=== PATIENT | male | born 1940 | race Caucasian/White ===

== ENCOUNTER → 2017-11-18 09:33 | Outpatient (CLI) | payer MEDICARE, SELFPAY ==
--- NOTE | 2017-11-18 | DI.ECHO.S_ITS ---
[facility] +---------+ : : [address] : : : : [id number] : : : : Phone: [phone]+ Echocardiogram Report + + :Name: EMILIANO CASTRO Study Date: 11/18/2017 Height: 74 in : :[facility] Weight: 151 lb : : Gender: Male BSA: 1.9 m2 : :: 1940 Age: 77 yrs BP: 136/74 mmHg: :Reason For Study: Aortic valve stenosis : :Ordering Physician: Bravo : :Kael Galan Performed By: Delilah Nieves : + + Interpretation Summary 1) Severe concentric left ventricular thickness with small size and normal systolic function (EF 55-60%). 2) Normal right ventricular size and function. 3) There is critically severe aortic stenosis (mean gradient 114mmHg, valve area 0.38cm2). 4) There is mild to moderate aortic regurgitation. 5) There is a small loculated pericardial effusion. 6) Normal pulmonary artery pressures. 7) Compared to the Echo done 10/01/2016, critical aortic stenosis has become more severe. Procedure: A two-dimensional transthoracic echocardiogram with color flow and Doppler was performed. NOTE TO TECH-The parasternal views were obtained from subcostal due to suboptimal acoustic window from traditional view. The study quality was technically adequate. Comparison is made with the echocardiogram of 10/01/2016. The patient was in sinus bradycardia with heart rates between 48-62 bpm during the exam. Left Ventricle: The left ventricular cavity is small. Left ventricular wall thickness is severely increased. There is no thrombus. The ejection fraction is estimated to be 55-60%. Right Ventricle: The right ventricle is normal in size and function. Atria: The left atrium is severely dilated. The right atrium is mildly dilated. There is no Doppler evidence for an interatrial shunt. Mitral Valve: The mitral valve leaflets are mildly calcified. There is trace mitral regurgitation. Aortic Valve: The aortic valve is not well visualized. The aortic valve is heavily calcified. The peak aortic velocity is 6.3 m/sec. The peak aortic velocity on the previous exam was 6.6 m/sec. The calculated aortic valve area is 0.38 cm2. The aortic valve mean gradient is 114.3 mmHg. There is critically severe aortic stenosis. There is mild to moderate aortic regurgitation. Tricuspid Valve: The tricuspid valve is normal in structure and function. There is trace tricuspid regurgitation. The right ventricular systolic pressure is estimated at 25 mmHg assuming a right atrial pressure of 8 mm Hg. Pulmonic Valve: The pulmonic valve is normal in structure and function. There is a trace or physiologic amount of pulmonic regurgitation. Great Vessels: The aortic root is not well visualized but is probably normal size. The ascending aorta could not be visualized. The aortic arch could not be visualized. The IVC is of normal diameter and collapses less than 50% with a sniff. This suggests a right atrial pressure of 8 mm Hg. Pericardium/ Pleura There is a small loculated pericardial effusion. There is no pleural effusion. MMode/2D Measurements & Calculations LVIDd: 3.3 cm LVOT diam: 2.3 cm LVIDs: 1.9 cm FS: 42.2 % IVSd: 2.2 cm LVPWd: 1.9 cm LV qureshi. diameter/BSA (cm/m^2): 1.7 LV sys. diameter/BSA (cm/m^2): 0.98 LA A2 area: 25.5 cm2 RA long axis: 4.5 cm LA A4 area: 23.3 cm2 RA area: 19.1 cm2 LA length (vol): 5.0 cm RA vol: 68.9 ml LA vol: 101.3 ml RA : 35.7 ml/m2 LA vol index: 52.5 ml/m2 IVC diam: 1.9 cm RVD1 (basal): 3.4 cm RVD2 (mid): 2.6 cm TAPSE: 2.7 cm Doppler Measurements & Calculations Ao V2 max: 632.1 cm/sec LVOT Max Lex: 62.3 cm/sec Ao V2 mean: 513.3 cm/sec LV V1 max P.6 mmHg Ao max P.8 mmHg LV V1 VTI: 18.9 cm Ao mean P.3 mmHg PAWAN(I,D): 0.38 cm2 Ao V2 VTI: 204.9 cm PAWAN(V,D): 0.41 cm2 sev ratio: 0.09 PAWAN indexed to BSA (cm^2/m^2): 0.20 AI P1/2t: 573.0 msec AI dec slope: 248.0 cm/sec2 MV E max lex: 75.2 cm/sec TR max lex: 204.8 cm/sec MV A max lex: 95.2 cm/sec TR max P.8 mmHg MV E/A: 0.79 PA V2 max: 105.1 cm/sec Med Peak E' Lex: 3.9 cm/sec PA V2 mean: 65.7 cm/sec E/E' med: 19.3 PA mean P.2 mmHg Lat Peak E' Lex: 3.1 cm/sec PA Accel Time: 0.16 sec E/E' lat: 24.6 E/e' average: 22.0 MV dec time: 0.33 sec MV P1/2t: 96.4 msec MV P1/2t max lex: 75.3 cm/sec MVA(P1/2t): 2.3 cm2 Reading Physician:05:45 PM
== END ==
PROVIDERS: PCP Family Medicine Sports Medicine; Visit Provider Internal Medicine Cardiovascular Disease
DX: I35.0 Nonrheumatic aortic (valve) stenosis (principal)
CPT/HCPCS: 93306

== ENCOUNTER 2018-03-20 15:37 | Emergency (ER) | payer MEDICARE, SELFPAY ==
[2018-03-20 15:47] VITALS: BP 135/68; PULSE 78; RESP 18; TEMP 36.9; O2SAT 98
--- NOTE | 2018-03-20 16:20 | ED_ITS ---
HPI - Male Genitourinary <Nella James PA-C - Last Filed: 03/20/18 21:45> General Chief complaint: Urogenital-Male Stated complaint: BLOOD IN URINE Time Seen by Provider: 03/20/18 15:55 Source: patient Mode of arrival: ambulatory Limitations: no limitations History of Present Illness HPI Narrative: This 75-year-old female comes in today directed by his urologist due to hematuria. He has chronic dave that is changed monthly secondary to urinary retention from BPH. He states that when the most recent catheter was placed 3 weeks ago, it felt uncomfortable, like it was pushing on the bladder somewhat like an inch too far. He had some bleeding which resolved after a few days but has had some discomfort ever since. He states that he was treated for an infection which resolved. He states that yesterday, he was out doing some weed eating on rough ground and also riding his [employer] mower, and after that he noticed quite a bit of dark blood again. He states that this persisted overnight though seems to be clearing up a little bit now. He has a large left inguinal hernia that he is seeing surgery for next week. He states that this can get a little sore anywhere is a hernia belt , but no enlargement or worsening today. He states that he is still able to push it in if he lies down. He denies any urinary pain, fever, new flank or abdominal pain. He denies any chest pain, dyspnea, or other new complaints on systems review today. Related Data Home Medications Medication Instructions Recorded Confirmed No Known Home Medications 03/20/18 03/20/18 Previous Rx's Medication Instructions Recorded nitrofurantoin monohyd/m-cryst 100 mg PO BID 5 Days #10 cap 03/20/18 [Macrobid] Allergies Allergy/AdvReac Type Severity Reaction Status Date / Time omeprazole [OMEPRAZOLE] Allergy Severe nosebleeds Verified 03/20/18 15:51 Review of Systems <Nella James PA-C - Last Filed: 03/20/18 21:45> Review of Systems All systems reviewed & are unremarkable except as noted in HPI and below Exam <Nella James PA-C - Last Filed: 03/20/18 21:45> Narrative Exam Narrative: GENERAL APPEARANCE: Patient sitting comfortably, appears well HEENT: PERRL, EOMI NECK: Supple LUNGS: Clear to auscultation bilaterally. HEART: Rate and rhythm regular, normal S1 and S2, no S3 or S4. ABDOMEN: Soft, nontender, nondistended, bowel sounds present x 4 quadrants EXTREMITIES: No edema DERMATOLOGIC: No jaundice or exanthem NEUROLOGIC: Alert and oriented with normal speech and coordination : Large nontender L. inguinal hernia which is partly reducible with patient standing. No penile lesions or meatal bleeding. Catheter is draining some blood mixed with clear yellow urine. Initial Vital Signs Initial Vital Signs: Vital Signs Temperature 98.5 F 03/20/18 15:47 Pulse Rate 78 03/20/18 15:47 Respiratory Rate 18 03/20/18 15:47 Blood Pressure 135/68 03/20/18 15:47 Pulse Oximetry 98 03/20/18 15:47 <Rebekah Srinivasan DO - Last Filed: 03/22/18 10:47> Initial Vital Signs Initial Vital Signs: Vital Signs Temperature 98.5 F 03/20/18 15:47 Pulse Rate 78 03/20/18 15:47 Respiratory Rate 18 03/20/18 15:47 Blood Pressure 135/68 03/20/18 15:47 Pulse Oximetry 98 03/20/18 15:47 Course <Nella James PA-C - Last Filed: 03/20/18 21:45> Orders Ordered: ED Orders 03/20/18 16:05 Urinalysis and Microscopic Stat Urine Culture Stat Hematuria had started to improve prior to patient's catheter change, but we did go ahead and replace this due to his persistent discomfort for the last few weeks. He does have bacteriuria as well on microscopic exam so will start antibiotic. He will return over the weekend if any acutely worsening symptoms, and will call Urology for follow-up on Friday if hematuria persists. Vital Signs - 8 hr 03/20/18 15:47 03/20/18 17:34 Temperature 98.5 F 99.2 F Pulse Rate 78 75 Respiratory Rate 18 16 Blood Pressure 135/68 Blood Pressure [Left Arm] 120/81 Pulse Oximetry 98 98 <DO Miguel Ahuja Last Filed: 03/22/18 10:47> Orders Ordered: ED Orders 03/20/18 16:05 Urinalysis and Microscopic Stat Urine Culture Stat Vital Signs - 8 hr 03/20/18 15:47 03/20/18 17:34 Temperature 98.5 F 99.2 F Pulse Rate 78 75 Respiratory Rate 18 16 Blood Pressure 135/68 Blood Pressure [Left Arm] 120/81 Pulse Oximetry 98 98 MDM - Male Genitourinary <Nella James PA-C - Last Filed: 03/20/18 21:45> Lab Data Lab Results 03/20/18 Range/Units 16:05 Urine Color Yellow Urine Appearance Cloudy Urine pH 6.0 (4.5-8.0) Ur Specific [place] 1.020 (1.000-1.035) Urine Protein 2+ H (Negative) Urine Glucose (UA) Negative (Normal) g/dL Urine Ketones Trace H (NEGATIVE) Urine Occult Blood 3+ H (Negative) Urine Nitrate Positive (Negative) Urine Bilirubin Negative (NEGATIVE) Urine Urobilinogen 1.0 (0.2) E.U./dL Ur Leukocyte Esterase 2+ H (NEGATIVE) Urine RBC >100/hpf (0-5/HPF) Urine WBC >100/hpf H (0-5/HPF) Ur Squamous Epith Cells 0-1 /hpf Urine Bacteria Many (>30) H (None) Ur Culture Indicated? Specimen cultured Micro UA Comment Not Reportable <Rebekah Srinivasan, - Last Filed: 03/22/18 10:47> Lab Data Lab Results 03/20/18 Range/Units 16:05 Urine Color Yellow Urine Appearance Cloudy Urine pH 6.0 (4.5-8.0) Ur Specific [place] 1.020 (1.000-1.035) Urine Protein 2+ H (Negative) Urine Glucose (UA) Negative (Normal) g/dL Urine Ketones Trace H (NEGATIVE) Urine Occult Blood 3+ H (Negative) Urine Nitrate Positive (Negative) Urine Bilirubin Negative (NEGATIVE) Urine Urobilinogen 1.0 (0.2) E.U./dL Ur Leukocyte Esterase 2+ H (NEGATIVE) Urine RBC >100/hpf (0-5/HPF) Urine WBC >100/hpf H (0-5/HPF) Ur Squamous Epith Cells 0-1 /hpf Urine Bacteria Many (>30) H (None) Ur Culture Indicated? Specimen cultured Micro UA Comment Not Reportable Discharge Plan Departure Patient Disposition: Home Clinical Impression: Hematuria, Bacteriuria Discharge Date/Time: 03/20/18 17:47 Interventions: ED Discharge Assessment Last Done: 03/20/18 17:46 Instructions: DI for Urinary Tract Infection (UTI), DI for Hematuria Activity Restrictions/Additional Instructions: Please return if you have any acutely worsening symptoms over the weekend. Otherwise, we will see if you feel more comfortable and the bleeding resolves with the catheter change. On microscopic analysis, you do have bacteria in you urine so I have sent in an antibiotic for you to take for 5 days. Please start that this evening. Please call your urologist on Friday if the bleeding has not stopped or you are not feeling more comfortable. Prescriptions: New nitrofurantoin monohyd/m-cryst [Macrobid] 100 mg capsule 100 mg PO BID 5 Days Qty: 10 RF: 0 No Action No Known Home Medications RF: 0 Referrals: Evelyne Ybarra MD [Physician] - Kieran Gibbs [Primary Care Provider] - <Rebekah Srinivasan DO - Last Filed: 03/22/18 10:47> Cosign ED Attending Cosiselaature Attestation: I was immediately available in the department for consultation. This documentation has been reviewed and I agree with assessment and plan. Supervised by Rebekah Srinivasan DO
[2018-03-20 16:36] LABS: Appearance Urine UA CLOUDY; Bilirubin Urine UA NEGATIVE (NEGATIVE); Color Urine UA YELLOW; Glucose Urine UA NEGATIVE (Normal); Ketones Urine UA TRACE (NEGATIVE); Leukocyte Esterase Urine UA 2+ (NEGATIVE); Nitrite Urine UA POSITIVE (Negative); Occult Blood Urine UA 3+ (Negative); Protein Urine UA 2+ (Negative)
[2018-03-20 16:41] LABS: Bacteria Urine Many (>30); Culture Indicated Urine Specimen Cultured; RBC Urine >100/HPF (0-5/HPF); Squamous Epithelial Cell Urine 0-1 /HPF; WBC Urine >100/HPF (0-5/HPF)
[2018-03-20 17:34] VITALS: BP 120/81; PULSE 75; RESP 16; TEMP 37.3; O2SAT 98
== END 2018-03-20 17:47 | disposition home or self-care (01) ==
PROVIDERS: Emergency Provider Internal Medicine; PCP Family Medicine Sports Medicine
DX: R31.9 Hematuria, unspecified (principal); R82.71 Bacteriuria
CPT/HCPCS: 51705; 81001; 87077; 87086; 87186; 99283

== ENCOUNTER → 2019-12-02 13:14 | Outpatient (CLI) | payer MEDICARE, SELFPAY ==
[2019-12-02 14:31] LABS: Appearance Urine UA CLOUDY
[2019-12-02 14:40] LABS: RBC Urine >100/HPF (0-5/HPF); WBC Urine >100/HPF (0-5/HPF)
[2019-12-02 14:41] LABS: Amorphous Sediment Urine 2+; Culture Indicated Urine Specimen Cultured; Granular Casts Urine 5-10/LPF; Squamous Epithelial Cell Urine 1-5 /HPF (0-5/HPF)
[2019-12-02 14:43] LABS: Color Urine UA RED
== END ==
PROVIDERS: PCP Family Medicine Sports Medicine; Referring Provider Urology; Visit Provider Urology
DX: R31.0 Gross hematuria (principal)
CPT/HCPCS: 81001; 87077; 87086; 87186

== ENCOUNTER 2020-12-22 19:45 | Inpatient (IN) | payer MEDICARE, SELFPAY ==
[2020-12-22] VITALS (10 sets, daily range): BP systolic 130–171; BP diastolic 75–89; PULSE 81–100; RESP 16–26; TEMP 36.9; O2SAT 92–98; BMI 19.1
--- NOTE | 2020-12-22 19:54 | DI.RAD.S_ITS ---
PROCEDURE: XR CHEST 1V INDICATIONS: chest pain TECHNIQUE: One view of the chest was acquired. COMPARISON: [facility], , CHEST 1 VIEW, 10/02/2016, 11:31. FINDINGS: Surgical changes and devices: Post sternotomy changes are seen. The superior most sternotomy wire is fractured. A prosthetic aortic valve is seen. Lungs and pleura: Lungs are hyperexpanded and clear. No pleural effusions or pneumothorax. Mediastinum: Mediastinal contours appear normal. Heart size is normal. Bones and chest wall: No suspicious bony lesions. Overlying soft tissues appear unremarkable. There is dextroconvex curvature of the spine and multilevel degenerative changes. IMPRESSION: No acute cardiopulmonary abnormality. Hyperexpanded lungs can be seen in the setting of COPD. Dictated by: Jose R Rivera M.D. on 12/22/2020 at 21:18 Approved by: Jose R Rivera M.D. on 12/22/2020 at 21:20
[2020-12-22 20:26] LABS: Add Manual Diff / Slide Review NO; Basophils Absolute Auto 0 /uL (0-100); Basophils Percent Auto 0.3 % (0-2); Eosinophils Absolute Auto 0 /uL (0-450); Eosinophils Percent Auto 0.1 % (2-4); Hemoglobin 13.1 g/dL (13.5-17.5); Lymphocytes Absolute Auto 700 /uL (1100-4500); Lymphocytes Percent Auto 5.2 % (25-40); Mean Corpuscular HGB Conc 32.8 % (30-36); Mean Corpuscular Hemoglobin 29.9 PG (26-34); Mean Corpuscular Volume 91.3 fL (80-100); Monocytes Absolute Auto 1700 /uL (0-900); Monocytes Percent Auto 11.7 % (3-14); Neutrophils Absolute Auto 11700 /uL (1500-7000); Neutrophils Percent Auto 82.7 % (50-75); Platelet Count 244 X10^3/uL (150-400); Red Blood Cell Count 4.38 X10^6/uL (4.5-5.9); White Blood Cell Count 14.2 X10^3/uL (4.5-11.0)
--- NOTE | 2020-12-22 20:39 | PC.NURSE ---
1L NS infusing to gravity, started by EMS
[2020-12-22 20:58] LABS: Alanine Aminotransferase 33 IU/L (<50); Albumin 3.5 g/dL (3.5-5.0); Albumin Globulin Ratio 1.1 (1.0-2.8); Alkaline Phosphatase 75 U/L (38-126); Aspartate Aminotransferase 61 IU/L (17-59); BUN Creatinine Ratio 35.3 (6-22); Bilirubin Total 0.8 mg/dL (0.2-1.3); Blood Urea Nitrogen 55 mg/dL (9-20); Calcium 9.4 mg/dL (8.4-10.2); Carbon Dioxide 22 mmol/L (22-32); Chloride 102 mmol/L (98-107); Creatine Kinase 91 U/L (55-170); Estimated Glomerular Filt Rate 43.1 mL/min (>60); Globulin 3.2 g/dL (1.7-4.1); Glucose 116 mg/dL (80-110); HEMOLYSIS 34 (0-50); Lipase 20 U/L (23-300); Potassium 4.3 mmol/L (3.4-5.1); Sodium 132 mmol/L (137-145); Total Protein 6.7 g/dL (6.3-8.2)
[2020-12-22 21:10] LABS: Troponin I < 0.012 ng/mL (0.01-0.034)
--- NOTE | 2020-12-22 22:00 | PC.NURSE ---
Full liter of NS from EMS infused. Pt incontinent of urine after assisting pt with urinal multiple times. Pt changed into paper scrub pants.
--- NOTE | 2020-12-22 22:09 | ED_ITS ---
HPI - General Adult General Chief complaint: Weakness Stated complaint: near syncope Time Seen by Provider: 12/22/20 22:09 History of Present Illness HPI narrative: 80-year-old gentleman presents because he is too weak to stand up and continues to fall down. He states that his symptoms started in May when he was lifting a heavy bag and feels like he tore his right rotator cuff. His notes that he has been increasingly weak since that time and having more difficulty using the right arm to propel him out of chairs etc.. Apparently he has had a number of falls over the last couple of days yesterday did fall and hit his head without a loss of consciousness he has no bruising contusions or neck pain. He has history of BPH acute urinary retention and bladder infections and had an indwelling Yuen catheter for about a year. He now is mostly incontinent of urine. Today his states that he has been increasingly weak he had a single cup of coffee and a single Coke this afternoon. They were sitting out on the deck and he was unable to stand by himself and it took 2 people to assist him to the bathroom. At that point they brought him into the emergency department. Continues to insist he is fine. He has no complaints of fever, cough, chills, chest pain, shortness of breath. He knows do note that he was recently treated for oral thrush with oral Diflucan and had significant diarrhea followed by constipation and are just now getting his bowels back to a regular pattern. Related Data Home Medications Medication Instructions Recorded Confirmed ibuprofen PO 03/26/18 03/26/18 multivitamin 1 tab PO DAILY 03/26/18 03/26/18 ranitidine HCl [Acid Control PO 03/26/18 03/26/18 (ranitidine)] Allergies Allergy/AdvReac Type Severity Reaction Status Date / Time omeprazole [OMEPRAZOLE] Allergy Severe nosebleeds Verified 03/26/18 10:07 Review of Systems Review of Systems Narrative: Remainder of complete review of systems is otherwise unremarkable except for that included in the HPI. Patient History Medical History (Updated 12/23/20 @ 02:04 by Monica Latif MD) Benign esophageal stricture Benign prostatic hyperplasia with urinary obstruction (07/25/16) Critical aortic valve stenosis (02/14/17) Gastroesophageal reflux disease without esophagitis (02/08/16) Hematuria Left inguinal hernia Urinary catheter complication Urinary retention Surgical History History of esophagogastroduodenoscopy (EGD) History of foot surgery Social History marital status: household members: spouse Smoking Status: Never smoker alcohol intake: current substance use type: does not use Smoking Status: Never smoker alcohol intake frequency: 0-2 drinks per day Substance Use Type: does not use Exam Narrative Exam Narrative: General: Pale, frail, wondering history HEENT: Moist mucous membranes, normal sclera with reactive pupils, atraumatic Neck: No JVD, supple Respiratory: Lungs are clear to auscultation, no wheezing no rales no rhonchi. Full and symmetrical air movement Cardiac: Regular rate and rhythm no murmurs no bruits Abdomen: Soft, nontender, good bowel tones, no flank pain Skin: Warm and dry, no rashes Neurologic: Globally weak but Grossly neurologically intact with no obvious asymmetries or abnormalities Extremities: No trauma, well perfused, no lower extremity edema minor abrasion to the left anterior newell after his fall yesterday Psych: Cantankerous with poor insight overall into events and his own physical strength Initial Vital Signs Initial Vital Signs: Vital Signs Temperature 98.4 F 12/22/20 19:50 Pulse Rate 96 H 12/22/20 19:50 Respiratory Rate 16 12/22/20 19:50 Blood Pressure 139/89 12/22/20 19:50 Pulse Oximetry 96 12/22/20 19:50 Procedures Cardioversion Time of Cardioversion: 00:41 Consent Signed: Yes Indication: Recurrent atrial fibrillation with rapid ventricular response. Just prior to cardioversion hand episode of ventricular tachycardia with rates into the 160s and blood pressures dropping. Stability: Unstable Number of attempts (shocks): 2 Joules used: 100 and 120 Cardiac rhythm post-cardioversion: Slower atrial fibrillation Procedural Sedation Time of procedure: 00:40 Consent signed: Yes Time out performed: Yes Indication: cardioversion ASA Class: II Mallampati Airway Classification: Class II Time of Last PO Intake: 15:00 Preparation: site monitor applied, pulse oximeter, capnometry used, supplemental O2 applied, suction/airway equipment at bedside and IV secured IV Propofol dose (mg): 60 (40mg would likley be adequate with future sedations) Intraservice time/total sedation time (min): 8 ED Sedation Level: Moderate (Concious) Patient Tolerated Procedure: [place] [facility] [place] Name of Procedure: Temporary suprapubic catheter placement Location: After multiple attempts at Yuen catheter placement with regular catheters, coude catheters of multiple sizes and temperature catheters of multiple flexabilities still unable to get the bladder to drain Course Orders Ordered: ED Orders 12/22/20 19:54 XR chest 1V Stat EKG-12 Lead Stat 12/22/20 20:20 Complete Blood Count AUTO DIFF Stat Comprehensive Metabolic Panel Stat Ethanol (ETOH) Stat Lipase Stat Troponin & CK Cardiac Panel Stat 12/22/20 22:25 CT head/brain wo con Stat 12/23/20 01:45 Blood Culture Stat Lactate (Lactic Acid) Stat 12/23/20 02:00 Urinalysis and Microscopic Stat Urine Culture Stat 12/23/20 02:24 COVID19 - ADMIT (MEDIA SALES REPRESENTATIVE swab/PCR) Stat Sodium Chloride (Normal Saline 0.9%) 1,000 mls @ 1,000 mls/hr IV BOLUS ONE Stop: 12/23/20 05:47 Sodium Chloride (Normal Saline 0.9%) 1,000 mls @ 150 mls/hr IV CONT FLORES Discontinued Medications Acetaminophen (Acetaminophen 650 Mg Supp) 650 mg MS NOW ONE Stop: 12/23/20 03:07 Last Admin: 12/23/20 03:10 Dose: 650 mg Documented by: [email or web address] Bacitracin (Bacitracin Oint 0.9 Gm Pckt) 1 applic TOP NOW ONE Stop: 12/23/20 04:06 Sodium Chloride (Normal Saline 0.9%) 1,000 mls @ 1,000 mls/hr IV BOLUS ONE Stop: 12/22/20 23:10 Last Infusion: 12/22/20 23:54 Dose: 0 mls/hr Documented by: Admin: 12/22/20 22:17 Dose: 1,000 mls/hr Documented by: RAÚL Sodium Chloride (Normal Saline 0.9%) 1,000 mls @ 1,000 mls/hr IV BOLUS ONE Stop: 12/23/20 03:03 Last Infusion: 12/23/20 04:21 Dose: 0 mls/hr Documented by: Admin: 12/23/20 02:17 Dose: 1,000 mls/hr Documented by: MARY Ceftriaxone Sodium 2,000 mg/ (Sodium Chloride) 100 mls @ 200 mls/hr IV NOW ONE Stop: 12/23/20 02:05 Last Infusion: 12/23/20 03:30 Dose: 0 mls/hr Documented by: Admin: 12/23/20 02:18 Dose: 200 mls/hr Documented by: MARY Lidocaine HCl (Lidocaine 2% (Glydo) 6 Ml Gel) 6 ml TOP NOW ONE Stop: 12/22/20 23:06 Last Admin: 12/22/20 23:30 Dose: 6 ml Documented by: EATASIA Lidocaine HCl (Lidocaine 2% (Glydo) 6 Ml Gel) 6 ml TOP NOW ONE Stop: 12/23/20 02:54 Lidocaine/Sodium Bicarbonate (Lido 1%/Sod Bicarb 8.4% (10ml) 10 Ml Syringe) 10 ml INJ NOW ONE Stop: 12/23/20 03:15 Last Admin: 12/23/20 03:52 Dose: 10 ml Documented by: OZZY Lorazepam (Lorazepam 0.5 Mg Tablet) 2 mg PO NOW ONE Stop: 12/22/20 21:36 Last Admin: 12/22/20 21:40 Dose: Not Given Documented by: RASHAWN Vital Signs Vital signs: Vital Signs - 8 hr 12/22/20 21:59 12/22/20 22:13 12/22/20 22:30 Temperature Pulse Rate 86 81 90 Respiratory Rate 16 26 H 19 Blood Pressure 151/75 H Pulse Oximetry 95 98 12/22/20 23:00 12/22/20 23:30 12/22/20 23:47 Temperature Pulse Rate 87 97 H 95 H Respiratory Rate 23 Blood Pressure 171/81 H Pulse Oximetry 95 92 12/22/20 23:48 12/23/20 00:00 12/23/20 01:26 Temperature 102.4 F H Pulse Rate 92 H 90 117 H Respiratory Rate 18 26 H Blood Pressure 171/81 H 128/73 Pulse Oximetry 94 12/23/20 01:53 12/23/20 02:00 12/23/20 02:08 Temperature Pulse Rate 118 H 114 H 112 H Respiratory Rate Blood Pressure 114/71 Pulse Oximetry 91 93 12/23/20 02:30 12/23/20 03:00 12/23/20 03:30 Temperature Pulse Rate 101 H 149 H 113 H Respiratory Rate 45 H Blood Pressure 116/61 139/85 109/60 Pulse Oximetry 92 75 L 96 12/23/20 04:00 12/23/20 04:30 Temperature Pulse Rate 116 H 110 H Respiratory Rate Blood Pressure 110/61 98/58 L Pulse Oximetry 93 94 Medical Decision Making Lab Data Result diagrams: 12/22/20 20:20 12/22/20 20:20 Labs: Lab Results 12/22/20 12/22/20 12/22/20 Range/Units 20:20 20:20 20:20 WBC 14.2 H (4.5-11.0) X10^3/uL RBC 4.38 L (4.5-5.9) X10^6/uL Hgb 13.1 L (13.5-17.5) g/dL Hct 40.0 L (41-53) % MCV 91.3 (80-100) fL MCH 29.9 (26-34) PG MCHC 32.8 (30-36) % RDW 13.0 (11.6-14.8) % Plt Count 244 (150-400) X10^3/uL Neut % (Auto) 82.7 H (50-75) % Lymph % (Auto) 5.2 L (25-40) % [place] % (Auto) 11.7 (3-14) % Eos % (Auto) 0.1 L (2-4) % Baso % (Auto) 0.3 (0-2) % Neut # (Auto) 23418 H (7667-8972) /uL Lymph # (Auto) 700 L (2532-5514) /uL [place] # (Auto) 1700 H (0-900) /uL Eos # (Auto) 0 (0-450) /uL Baso # (Auto) 0 (0-100) /uL Sodium 132 L (137-145) mmol/L Potassium 4.3 (3.4-5.1) mmol/L Chloride 102 (98-107) mmol/L Carbon Dioxide 22 (22-32) mmol/L BUN 55 H (9-20) mg/dL Creatinine 1.56 H (0.66-1.25) mg/dL Estimated GFR 43.1 L (>60) mL/min BUN/Creatinine Ratio 35.3 H (6-22) Glucose 116 H (80-110) mg/dL Lactate (0.7-2.1) mmol/L Calcium 9.4 (8.4-10.2) mg/dL Total Bilirubin 0.8 (0.2-1.3) mg/dL AST 61 H (17-59) IU/L ALT 33 (<50) IU/L Alkaline Phosphatase 75 (38-126) U/L Total Creatine Kinase 91 (55-170) U/L CK-MB (CK-2) TNP CK-MB (CK-2) Rel Index TNP Troponin I < 0.012 (0.01-0.034) ng/mL Total Protein 6.7 (6.3-8.2) g/dL Albumin 3.5 (3.5-5.0) g/dL Globulin 3.2 (1.7-4.1) g/dL Albumin/Globulin Ratio 1.1 (1.0-2.8) Lipase 20 L (23-300) U/L Urine Color Urine Appearance Urine pH (4.5-8.0) Ur Specific [place] (1.000-1.035) Urine Protein (Negative) Urine Glucose (UA) (Negative) g/dL Urine Ketones (NEGATIVE) Urine Occult Blood (Negative) Urine Nitrate (Negative) Urine Bilirubin (NEGATIVE) Urine Urobilinogen (0.2) E.U./dL Ur Leukocyte Esterase (NEGATIVE) Urine RBC Urine WBC Ur Squamous Epith Cells Ur Transition Epith Cell Ur Renal Epithelial Cell Calcium Oxalate Crystal Uric Acid Crystals Triple Phos Crystals Other Crystals Amorphous Sediment Urine Bacteria Hyaline Casts Granular Casts RBC Casts WBC Casts Other Casts Urine Mucus Urine Trichomonas Urine Yeast Urine Sperm Ur Culture Indicated? Micro UA Comment Ethyl Alcohol < 10 ( - 10) mg/dL SARS-CoV-2 (PCR) (Negative) 12/23/20 12/23/20 12/23/20 Range/Units 01:45 02:00 02:00 WBC (4.5-11.0) X10^3/uL RBC (4.5-5.9) X10^6/uL Hgb (13.5-17.5) g/dL Hct (41-53) % MCV (80-100) fL MCH (26-34) PG MCHC (30-36) % RDW (11.6-14.8) % Plt Count (150-400) X10^3/uL Neut % (Auto) (50-75) % Lymph % (Auto) (25-40) % [place] % (Auto) (3-14) % Eos % (Auto) (2-4) % Baso % (Auto) (0-2) % Neut # (Auto) (2005-7611) /uL Lymph # (Auto) (8614-7772) /uL [place] # (Auto) (0-900) /uL Eos # (Auto) (0-450) /uL Baso # (Auto) (0-100) /uL Sodium (137-145) mmol/L Potassium (3.4-5.1) mmol/L Chloride (98-107) mmol/L Carbon Dioxide (22-32) mmol/L BUN (9-20) mg/dL Creatinine (0.66-1.25) mg/dL Estimated GFR (>60) mL/min BUN/Creatinine Ratio (6-22) Glucose (80-110) mg/dL Lactate 2.7 H (0.7-2.1) mmol/L Calcium (8.4-10.2) mg/dL Total Bilirubin (0.2-1.3) mg/dL AST (17-59) IU/L ALT (<50) IU/L Alkaline Phosphatase (38-126) U/L Total Creatine Kinase (55-170) U/L CK-MB (CK-2) CK-MB (CK-2) Rel Index Troponin I (0.01-0.034) ng/mL Total Protein (6.3-8.2) g/dL Albumin (3.5-5.0) g/dL Globulin (1.7-4.1) g/dL Albumin/Globulin Ratio (1.0-2.8) Lipase (23-300) U/L Urine Color Yellow Urine Appearance Cloudy Urine pH 6.0 (4.5-8.0) Ur Specific [place] 1.010 (1.000-1.035) Urine Protein 2+ H (Negative) Urine Glucose (UA) Negative (Negative) g/dL Urine Ketones Negative (NEGATIVE) Urine Occult Blood 3+ H (Negative) Urine Nitrate Positive H (Negative) Urine Bilirubin Negative (NEGATIVE) Urine Urobilinogen 0.2 (0.2) E.U./dL Ur Leukocyte Esterase 2+ H (NEGATIVE) Urine RBC Cancelled 30-100/hpf H Urine WBC Cancelled >100/hpf H Ur Squamous Epith Cells Cancelled Ur Transition Epith Cell Cancelled Ur Renal Epithelial Cell Cancelled Calcium Oxalate Crystal Cancelled Uric Acid Crystals Cancelled Triple Phos Crystals Cancelled Other Crystals Cancelled Amorphous Sediment Cancelled Urine Bacteria Cancelled Many (>30) H Hyaline Casts Cancelled Granular Casts Cancelled RBC Casts Cancelled WBC Casts Cancelled Other Casts Cancelled Urine Mucus Cancelled Urine Trichomonas Cancelled Urine Yeast Cancelled Urine Sperm Cancelled Ur Culture Indicated? Cancelled Specimen cultured Micro UA Comment Cancelled Ethyl Alcohol ( - 10) mg/dL SARS-CoV-2 (PCR) (Negative) 12/23/20 12/23/20 Range/Units 02:24 04:20 WBC (4.5-11.0) X10^3/uL RBC (4.5-5.9) X10^6/uL Hgb (13.5-17.5) g/dL Hct (41-53) % MCV (80-100) fL MCH (26-34) PG MCHC (30-36) % RDW (11.6-14.8) % Plt Count (150-400) X10^3/uL Neut % (Auto) (50-75) % Lymph % (Auto) (25-40) % [place] % (Auto) (3-14) % Eos % (Auto) (2-4) % Baso % (Auto) (0-2) % Neut # (Auto) (2390-9036) /uL Lymph # (Auto) (4436-4615) /uL [place] # (Auto) (0-900) /uL Eos # (Auto) (0-450) /uL Baso # (Auto) (0-100) /uL Sodium (137-145) mmol/L Potassium (3.4-5.1) mmol/L Chloride (98-107) mmol/L Carbon Dioxide (22-32) mmol/L BUN (9-20) mg/dL Creatinine (0.66-1.25) mg/dL Estimated GFR (>60) mL/min BUN/Creatinine Ratio (6-22) Glucose (80-110) mg/dL Lactate 2.9 H (0.7-2.1) mmol/L Calcium (8.4-10.2) mg/dL Total Bilirubin (0.2-1.3) mg/dL AST (17-59) IU/L ALT (<50) IU/L Alkaline Phosphatase (38-126) U/L Total Creatine Kinase (55-170) U/L CK-MB (CK-2) CK-MB (CK-2) Rel Index Troponin I (0.01-0.034) ng/mL Total Protein (6.3-8.2) g/dL Albumin (3.5-5.0) g/dL Globulin (1.7-4.1) g/dL Albumin/Globulin Ratio (1.0-2.8) Lipase (23-300) U/L Urine Color Urine Appearance Urine pH (4.5-8.0) Ur Specific [place] (1.000-1.035) Urine Protein (Negative) Urine Glucose (UA) (Negative) g/dL Urine Ketones (NEGATIVE) Urine Occult Blood (Negative) Urine Nitrate (Negative) Urine Bilirubin (NEGATIVE) Urine Urobilinogen (0.2) E.U./dL Ur Leukocyte Esterase (NEGATIVE) Urine RBC Urine WBC Ur Squamous Epith Cells Ur Transition Epith Cell Ur Renal Epithelial Cell Calcium Oxalate Crystal Uric Acid Crystals Triple Phos Crystals Other Crystals Amorphous Sediment Urine Bacteria Hyaline Casts Granular Casts RBC Casts WBC Casts Other Casts Urine Mucus Urine Trichomonas Urine Yeast Urine Sperm Ur Culture Indicated? Micro UA Comment Ethyl Alcohol ( - 10) mg/dL SARS-CoV-2 (PCR) Negative (Negative) Imaging Data Chest x-ray: Radiologist's Impression: FINDINGS: Surgical changes and devices: Post sternotomy changes are seen. The superior most sternotomy wire is fractured. A prosthetic aortic valve is seen. Lungs and pleura: Lungs are hyperexpanded and clear. No pleural effusions or pneumothorax. Mediastinum: Mediastinal contours appear normal. Heart size is normal. Bones and chest wall: No suspicious bony lesions. Overlying soft tissues appear unremarkable. There is dextroconvex curvature of the spine and multilevel degenerative changes. IMPRESSION: No acute cardiopulmonary abnormality. Hyperexpanded lungs can be seen in the setting of COPD. Dictated by: Jose R Rivera M.D. on 12/22/2020 at 21:18 ECG Data Interpretation: Sinus rhythm at a rate of 87 Normal intervals, normal axis No acute ischemic changes MDM Narrative Medical decision making narrative: Gentleman with increasing weakness. Labs do suggest possible infection with a mildly elevated white blood cell count however no obvious sources clearly identified initially. Has a history of bladder issues urinary retention and states that he has been doing well over the past year. He initially declines catheterization but is not able to provide a urine sample. After a bit of discussion, multiple catheter attempts are made by multiple nurses with no success. At 1:30 a.m. was noticed to be significantly febrile, increasing confusion, increasing tachypnea and tachycardic to 114. With concerns for developing sepsis at this time, another concerted attempt is made at Yuen catheter placement. Bladder scan had indicated at least a L of urine was in the bladder. This time we were successful. Blood cultures have been added. Will be can treatment for urinary tract infection with concern for sepsis developing. Previous urine cultures have indicated Citrobacter that is pansensitive. Will begin with 2 g of IV ceftriaxone and anticipate hospitalization. 2:50am continued attempts to get his Yuen to drain are unsuccessful. With the ultrasound can see fluid being pushed through the Yuen in to the bladder but can not see the Yuen catheter bulb itself. Presumably it is cot either in the prostate or behind the stricture. Call to Dr. Lundberg, on-call for Urology to see if he has any thoughts or suggestions. He physically is in [place] so having him come up to help is not an option. Given that bed availability up and down the [address] is significantly limited, interventional radiology to place a suprapubic catheter is not available till Friday and inhouse urology is not available till Friday at the very earliest and that is not confirmed alternatives that could be safe and still decompress the bladder that is close to 1500 cc at this point make sense. We discussed using a pigtail type chest to on to use as a suprapubic catheter. This gentleman is quite thin and with a bladder this distended placement would likely be relatively simple. Nursing staff is going to try placing a temp Yuen which is a slight bit more rigid to see that might work 1st 452am care is reviewed with Ms. Martini, hospitalist JASVIR. The small suprapubic catheter is draining but quite slowly. 300 cc are out at this point and he seems to be in a bit less pain because of the bladder distension. Expect around 2 L eventually. Despite inability to drain his bladder he was given initial fluids and antibiotics. He will be given an additional 1 L of fluid for a total of 2 L which is more than the 30 cc bolus recommendation. Urine and blood has been cultured. Blood pressure is falling slightly but heart rate and respiratory rate are coming down nicely as his pain is being appropriately a ddressed. He was given Dilaudid prior to the suprapubic catheter placement and that may be influencing the blood pressure is well. At this point he clearly has a urinary tract infection with signs and symptoms of developing sepsis without severe sepsis at this point. He is safe for transfer to the floor Discharge Plan Departure Patient Disposition: Admitted as Observation Clinical Impression: Acute urinary retention, Acute renal insufficiency UTI (urinary tract infection) Qualifiers: Urinary tract infection type: acute cystitis Hematuria presence: without hematuria Qualified Code(s): N30.00 - Acute cystitis without hematuria Sepsis Qualifiers: Sepsis type: sepsis due to unspecified organism Sepsis acute organ dysfunction status: with acute organ dysfunction Severe sepsis acute organ dysfunction type: encephalopathy Severe sepsis shock status: without septic shock Qualified Code(s): A41.9 - Sepsis, unspecified organism
[2020-12-22] MEDS: SODIUM CHLORIDE 0.9% 1,000 ML 1000 ML IV (22:17)
--- NOTE | 2020-12-22 22:25 | DI.CT.S_ITS ---
PROCEDURE: CT HEAD/BRAIN WO CON INDICATIONS: falling and weakness TECHNIQUE: Noncontrast 4.5 mm thick angled axial sections acquired from the foramen magnum to the vertex, with coronal and sagittal reformats. For radiation dose reduction, the following was used: automated exposure control, adjustment of mA and/or kV according to patient size. COMPARISON: None. FINDINGS: Image quality: Excellent. CSF spaces: Basal cisterns are patent. No extra-axial fluid collections. Ventricles are normal in size and shape. Brain: Global cerebral volume loss and chronic microvascular ischemic changes. No midline shift. No intracranial masses or hemorrhage. [place]varado-white matter interface is normal. Skull and face: Calvarium and visualized facial bones are intact, without suspicious lesions. Sinuses: Visualized sinuses and mastoids are clear. IMPRESSION: No acute intracranial finding. No significant change from preliminary report. Dictated by: Reggie Masterson M.D. on 12/23/2020 at 8:07 Approved by: Reggie Masterson M.D. on 12/23/2020 at 8:08
--- NOTE | 2020-12-22 22:34 | PC.NURSE ---
Assisted pt with standing at side of bed for urine sample but unsuccessful in providing sample at this time.
[2020-12-22 22:45] LABS: Ethanol (ETOH) < 10 mg/dL
[2020-12-22] MEDS: LIDOCAINE 2% (GLYDO) 6 ML GEL TOP (23:30)
--- NOTE | 2020-12-22 23:47 | PC.NURSE ---
Yuen catheter attempted after urojet applied, regular 16F, 16F coude, 14F coude and 18F coude all unsuccessful. Dr Latif updated.
[2020-12-23] VITALS (66 sets, daily range): BP systolic 67–139; BP diastolic 45–85; PULSE 88–149; RESP 17–45; TEMP 36.2–39.1; O2SAT 75–99; BMI 18.6
--- NOTE | 2020-12-23 02:00 | PC.NURSE ---
Yuen catheter placed after numerous attempts and was successful. Draining cloudy urine to gravity and sent to lab. Blood cultures drawn and lactate and sent to lab. Dr Latif updated.
[2020-12-23 02:16] LABS: Lactate (Lactic Acid) 2.7 mmol/L (0.7-2.1)
[2020-12-23] MEDS: SODIUM CHLORIDE 0.9% 1,000 ML 1000 ML IV ×5 (02:17→16:10)
[2020-12-23] MEDS: cefTRIAXone 2,000 MG in SODIUM CHLORIDE 0.9% 100 ML 200 ML IV (02:18)
[2020-12-23 02:26] LABS: Appearance Urine UA CLOUDY; Bilirubin Urine UA NEGATIVE (NEGATIVE); Color Urine UA YELLOW; Glucose Urine UA NEGATIVE (Negative); Ketones Urine UA NEGATIVE (NEGATIVE); Leukocyte Esterase Urine UA 2+ (NEGATIVE); Nitrite Urine UA POSITIVE (Negative); Occult Blood Urine UA 3+ (Negative); Protein Urine UA 2+ (Negative); Urobilinogen Urine UA 0.2 E.U./dL (0.2)
[2020-12-23 02:35] LABS: Bacteria Urine Many (>30); RBC Urine 30-100/HPF (0-5/HPF); WBC Urine >100/HPF (0-5/HPF)
[2020-12-23 02:36] LABS: Culture Indicated Urine Specimen Cultured
[2020-12-23] MEDS: HYDROMORPHONE 1 MG INJ (03:05)
[2020-12-23] MEDS: ACETAMINOPHEN 650 MG SUPP PR (03:10)
[2020-12-23 03:19] LABS: COVID19 - ADMIT (NP swab/PCR) Negative (Negative)
[2020-12-23] MEDS: LIDO 1%/SOD BICARB 8.4% (10ML) 10 ML SYRINGE INJ (03:52)
[2020-12-23 04:05] LABS: Reflexed Lactate in 2 Hours Y
[2020-12-23 04:36] LABS: Lactate 2HR (Lactic Acid Rflx) 2.9 mmol/L (0.7-2.1)
--- NOTE | 2020-12-23 05:26 | PM.HP.1 ---
History of Present Illness History of Present Illness Date Patient Seen: 12/23/20 Time Patient Seen: 05:26 Chief complaint: near syncope Narrative: Patient is a 80-year-old gentleman Ankush Douglas who was brought into the ED this evening because he is too weak to stand up at home and continues to fall down when he attempts to stand. The patient advised the ED that his symptoms started in May when he was lifting a heavy bag and feels like he tore his right rotator cuff. His noted that he has been increasingly weak since that time and having more difficulty using his right arm to propel him out of chairs etc.. Apparently he has had a number of falls over the last couple of days, yesterday he fell and hit his head without a loss of consciousness he is without signs of neck injury or pain. He has history of BPH acute urinary retention and bladder infections and had an indwelling Yuen catheter for about a year. He now is mostly incontinent of urine. Today his states that he has been increasingly weak he had a single cup of coffee and a single Coke this afternoon. They were sitting out on the deck and he was unable to stand by himself and it took 2 people to assist him to the bathroom. At that point they brought him into the emergency department. The patient continued to insist he was fine. He denied fever, cough, chills, chest pain, shortness of breath. While in the ED patient was found to have a 1000 cc of urinary retention in his bladder, multiple different catheters were attempted and were unsuccessful. Dr. Thomas after consulting Urology placed a temporary suprapubic catheter which has been able to facilitate some urine drainage. Patient became increasingly confused, tachycardic, tachypneic, and febrile while in the ED. Patient unable to accurately provide ROS, HPI or family history information due to encephalopathy Patient's vital signs upon admit temp 102.4?, BP 98/58, HR 110, RR 45, O2 saturation 94% on room air. Patient had elevated WBC 14.2 with neutrophil left shift 11,700, HGB 13.1, HCT 40. Sodium 132, ELODIA reflected in a BUN 55, creatinine 1.56, GFR 43.1, and glucose 116. Patient's lactate was elevated at 2.9 likely reflective of the trauma of attempted to catheterize him. Lipase 20. Patient's urinalysis was positive for nitrates and leukocytes culture pending. Chest x-ray demonstrated no acute cardiopulmonary processes, lungs were hyperexpanded. Patient admitted for urinary retention, UTI, ELODIA, sepsis with encephalopathy. Patient History Medical History Benign esophageal stricture Benign prostatic hyperplasia with urinary obstruction (07/25/16) Critical aortic valve stenosis (02/14/17) Gastroesophageal reflux disease without esophagitis (02/08/16) Hematuria Left inguinal hernia Urinary catheter complication Urinary retention Surgical History History of esophagogastroduodenoscopy (EGD) History of foot surgery Family & Social History Social History: household members spouse Safety & Behavioral: Feels Safe in Current Yes Environment Been Physically Hurt or No Threatened By a Person Tobacco & Substance use: Smoking Status Never smoker alcohol intake current alcohol intake frequency 0-2 drinks per day Substance Use Type does not use Meds Home Medications and Allergies Home Medications Medication Instructions Recorded Confirmed Type ibuprofen PO 03/26/18 03/26/18 History multivitamin 1 tab PO DAILY 03/26/18 03/26/18 History ranitidine HCl [Acid Control PO 03/26/18 03/26/18 History (ranitidine)] Allergies Allergy/AdvReac Type Severity Reaction Status Date / Time omeprazole [OMEPRAZOLE] Allergy Severe nosebleeds Verified 03/26/18 10:07 Review of Systems Review of Systems Narrative: Patient unable to participate in ROS information gathering due to confused mental status related to infection. Exam Vital Signs (past 8 hours): - 12/22/20 21:59 12/22/20 22:13 12/22/20 22:30 Temperature Pulse Rate 86 81 90 Respiratory Rate 16 26 H 19 Blood Pressure 151/75 H Pulse Oximetry 95 98 12/22/20 23:00 12/22/20 23:30 12/22/20 23:47 Temperature Pulse Rate 87 97 H 95 H Respiratory Rate 23 Blood Pressure 171/81 H Pulse Oximetry 95 92 12/22/20 23:48 12/23/20 00:00 12/23/20 01:26 Temperature 102.4 F H Pulse Rate 92 H 90 117 H Respiratory Rate 18 26 H Blood Pressure 171/81 H 128/73 Pulse Oximetry 94 12/23/20 01:53 12/23/20 02:00 12/23/20 02:08 Temperature Pulse Rate 118 H 114 H 112 H Respiratory Rate Blood Pressure 114/71 Pulse Oximetry 91 93 12/23/20 02:30 12/23/20 03:00 12/23/20 03:30 Temperature Pulse Rate 101 H 149 H 113 H Respiratory Rate 45 H Blood Pressure 116/61 139/85 109/60 Pulse Oximetry 92 75 L 96 12/23/20 04:00 12/23/20 04:30 12/23/20 05:00 Temperature Pulse Rate 116 H 110 H 113 H Respiratory Rate Blood Pressure 110/61 98/58 L 91/56 L Pulse Oximetry 93 94 93 Oxygen Delivery Method Room Air Narrative Exam Narrative: General: Patient is a pale, frail elderly male, confused and poor historian, in no distress at this time. HEENT: Normocephalic, atraumatic, extraocular muscles intact, oral pharynx is clear and mucous membranes are moist. Neck is supple and symmetric, trachea is midline, no adenopathy, no thyroid enlargement, nontender, no masses palpated. Negative for JVD Chest: Normal AP diameter and contour without kyphoscoliosis, no nasal flaring, retractions, or tachypneic labored Lungs: Auscultation of all lung padilla are clear without adventitious sounds, wheezes, rhonchi, or rales. Cardio: S1 & S2 with regular rate and rhythm without murmur, rubs, or gallops, no carotid bruit, no cardiac pulsations present. Abdomen: Soft nontender, negative for organomegaly, or masses. Bowel sounds are present in all 4 quadrants without guarding or rebound, no CVA tenderness. Temporary Suprapubic catheter in place, Musculoskeletal: Muscle no deformity, crepitus, effusions, cyanosis, clubbing or edema present. Full range of motion intact radial and pedal pulses are normal. Neurologic: Globally weak but Grossly neurologically intact with no obvious asymmetries or abnormalities Extremities: No trauma, well perfused, no lower extremity edema minor abrasion to the left anterior newell after his fall yesterday Psych: Cantankerous with poor insight overall into events and his own physical strength Objective Labs Result Diagrams: 12/23/20 06:15 12/23/20 06:15 Labs: Laboratory Results - last 24 hr 12/22/20 12/22/20 12/22/20 20:20 20:20 20:20 WBC 14.2 H RBC 4.38 L Hgb 13.1 L Hct 40.0 L MCV 91.3 MCH 29.9 MCHC 32.8 RDW 13.0 Plt Count 244 Neut % (Auto) 82.7 H Lymph % (Auto) 5.2 L [place] % (Auto) 11.7 Eos % (Auto) 0.1 L Baso % (Auto) 0.3 Neut # (Auto) 30658 H Lymph # (Auto) 700 L [place] # (Auto) 1700 H Eos # (Auto) 0 Baso # (Auto) 0 Sodium 132 L Potassium 4.3 Chloride 102 Carbon Dioxide 22 BUN 55 H Creatinine 1.56 H Estimated GFR 43.1 L BUN/Creatinine Ratio 35.3 H Glucose 116 H Lactate Calcium 9.4 Total Bilirubin 0.8 AST 61 H ALT 33 Alkaline Phosphatase 75 Total Creatine Kinase 91 CK-MB (CK-2) TNP CK-MB (CK-2) Rel Index TNP Troponin I < 0.012 Total Protein 6.7 Albumin 3.5 Globulin 3.2 Albumin/Globulin Ratio 1.1 Lipase 20 L Urine Color Urine Appearance Urine pH Ur Specific [place] Urine Protein Urine Glucose (UA) Urine Ketones Urine Occult Blood Urine Nitrate Urine Bilirubin Urine Urobilinogen Ur Leukocyte Esterase Urine RBC Urine WBC Ur Squamous Epith Cells Ur Transition Epith Cell Ur Renal Epithelial Cell Calcium Oxalate Crystal Uric Acid Crystals Triple Phos Crystals Other Crystals Amorphous Sediment Urine Bacteria Hyaline Casts Granular Casts RBC Casts WBC Casts Other Casts Urine Mucus Urine Trichomonas Urine Yeast Urine Sperm Ur Culture Indicated? Micro UA Comment Ethyl Alcohol < 10 SARS-CoV-2 (PCR) 12/23/20 12/23/20 12/23/20 01:45 02:00 02:00 WBC RBC Hgb Hct MCV MCH MCHC RDW Plt Count Neut % (Auto) Lymph % (Auto) [place] % (Auto) Eos % (Auto) Baso % (Auto) Neut # (Auto) Lymph # (Auto) [place] # (Auto) Eos # (Auto) Baso # (Auto) Sodium Potassium Chloride Carbon Dioxide BUN Creatinine Estimated GFR BUN/Creatinine Ratio Glucose Lactate 2.7 H Calcium Total Bilirubin AST ALT Alkaline Phosphatase Total Creatine Kinase CK-MB (CK-2) CK-MB (CK-2) Rel Index Troponin I Total Protein Albumin Globulin Albumin/Globulin Ratio Lipase Urine Color Yellow Urine Appearance Cloudy Urine pH 6.0 Ur Specific [place] 1.010 Urine Protein 2+ H Urine Glucose (UA) Negative Urine Ketones Negative Urine Occult Blood 3+ H Urine Nitrate Positive H Urine Bilirubin Negative Urine Urobilinogen 0.2 Ur Leukocyte Esterase 2+ H Urine RBC Cancelled 30-100/hpf H Urine WBC Cancelled >100/hpf H Ur Squamous Epith Cells Cancelled Ur Transition Epith Cell Cancelled Ur Renal Epithelial Cell Cancelled Calcium Oxalate Crystal Cancelled Uric Acid Crystals Cancelled Triple Phos Crystals Cancelled Other Crystals Cancelled Amorphous Sediment Cancelled Urine Bacteria Cancelled Many (>30) H Hyaline Casts Cancelled Granular Casts Cancelled RBC Casts Cancelled WBC Casts Cancelled Other Casts Cancelled Urine Mucus Cancelled Urine Trichomonas Cancelled Urine Yeast Cancelled Urine Sperm Cancelled Ur Culture Indicated? Cancelled Specimen cultured Micro UA Comment Cancelled Ethyl Alcohol SARS-CoV-2 (PCR) 12/23/20 12/23/20 02:24 04:20 WBC RBC Hgb Hct MCV MCH MCHC RDW Plt Count Neut % (Auto) Lymph % (Auto) [place] % (Auto) Eos % (Auto) Baso % (Auto) Neut # (Auto) Lymph # (Auto) [place] # (Auto) Eos # (Auto) Baso # (Auto) Sodium Potassium Chloride Carbon Dioxide BUN Creatinine Estimated GFR BUN/Creatinine Ratio Glucose Lactate 2.9 H Calcium Total Bilirubin AST ALT Alkaline Phosphatase Total Creatine Kinase CK-MB (CK-2) CK-MB (CK-2) Rel Index Troponin I Total Protein Albumin Globulin Albumin/Globulin Ratio Lipase Urine Color Urine Appearance Urine pH Ur Specific [place] Urine Protein Urine Glucose (UA) Urine Ketones Urine Occult Blood Urine Nitrate Urine Bilirubin Urine Urobilinogen Ur Leukocyte Esterase Urine RBC Urine WBC Ur Squamous Epith Cells Ur Transition Epith Cell Ur Renal Epithelial Cell Calcium Oxalate Crystal Uric Acid Crystals Triple Phos Crystals Other Crystals Amorphous Sediment Urine Bacteria Hyaline Casts Granular Casts RBC Casts WBC Casts Other Casts Urine Mucus Urine Trichomonas Urine Yeast Urine Sperm Ur Culture Indicated? Micro UA Comment Ethyl Alcohol SARS-CoV-2 (PCR) Negative Assessment & Plan Assessment & Plan narrative: Patient is a 80-year-old gentleman Ankush Douglas with a history of BPH, acute urinary retention, UTI's, and had an indwelling Yuen catheter for about a year. This patient has been admitted for acute urinary retention that required the emergency placement of a temporary suprapubic catheter, resulting in UTI, ELODIA, sepsis, with encephalopathy. 1. Acute urinary retention, with resulting UTI (complicated), ELODIA, sepsis with encephalopathy, acute, present on admission-Stable - 1000 cc of urinary retention in bladder, multiple different catheters were attempted and were unsuccessful. Dr. Thomas after consulting Urology placed a temporary suprapubic catheter which has been able to facilitate some urine drainage. -temp 102.4?, BP 98/58, HR 110, RR 45, O2 saturation 94% on room air, WBC 14.2, neut 11,700, HGB 13.1, HCT 40, Na+132,BUN 55, creatinine 1.56 (Last known 1.10), GFR 43.1(last >60),glucose 116, lactate 2.9, Lipase 20. U/A: positive nitrates and leukocytes -culture pending.Sofa score:3, positive history for previous UTI -rule out cystitis vs. pyelonephritis vs. epididymitis vs. prostatitis vs.nephrolithiasis -patient to be monitored on tele medicine, vital signs q.4 hours, intake and output monitored Q shift, manage temporary suprapubic catheter, weight measure daily, -diet: Regular, Maintain 02 sat Goal 88-92%. -IV fluid normal saline 100 cc/HR, gentle rehydration- reassess in am and determine to increase fluids or restriction depending on volume status. -In ED:sepsis bundle IV bolus, 2 g of Rocephin, and temporary suprapubic catheter was placed after multiple unsuccessful urethral catheter attempts, check orthostatics upon admission and once per shift, activity as tolerated, strict I&O, daily weights, call for urinary output less than 30cc QHr, temp >38.5, systolic <100 or Heart rate >110 or an SaO2 less than 88%, -labsAM: lactate, CBC, CMP, blood cultures x2 and urine culture pending - Rocephin 1 g Q 24 hours -consults ordered: Urology Dr. Campo regarding permanent super pubic catheter placement. Although Dr. Lundberg is on-call this weekend, name was not on drop-down consult list. -prevention vaccine: Covid, yearly flu vaccine, shingles, pneumonia Code status:Full Code Surrogate decision maker: VANESSA PCR: Negative DVT/VTE prophylaxis: Lovenox 40 and SCDs Estimated length of stay: Greater than 2 midnights, as patient will require permanent suprapubic catheter placement which may not be available Friday, and resolution of complicating medical conditions. I have utilized all available immediate resources to obtain, update, or review the patient's current medications. I confirmed that the patient's advanced care plan is present, Code status is documented and/or surrogate decision maker is listed in the patient's medical record. Scores GCS Mcgee coma scale eye opening: Spontaneous Mcgee coma scale verbal response: Confused Mcgee coma scale motor response: Normal flexion Mcgee coma scale total score: 12 SOFA PaO2/FIO2: >=400 mmHg Platelets: >= 150 Bilirubin: < 1.2 mg/dL Hypotension: MAP >= 70 mmHg Mcgee Coma Scale: 10-12 Renal: Creatinine 1.2-1.9 mg/dL SOFA Score: 3 Wells' Criteria for PE Clinical signs and symptoms of DVT: No PE is #1 Dx or equally likely: No Heart rate > 100: Yes Immobilization at least 3 days or surg in previous 4 weeks: Yes History of PE or DVT: No Hemoptysis: No Malignancy w/Treatment within 6 months or palliative: No Wells' PE Score total: 3.0
[2020-12-23] MEDS: BACITRACIN OINT 0.9 GM PCKT 1 APPLIC TOP (05:27)
[2020-12-23] MEDS: LIDOCAINE 2% (GLYDO) 6 ML GEL TOP (05:27)
[2020-12-23 06:29] LABS: Add Manual Diff / Slide Review NO; Basophils Absolute Auto 0 /uL (0-100); Eosinophils Absolute Auto 0 /uL (0-450); Eosinophils Percent Auto 0.1 % (2-4); Hematocrit 36.4 % (41-53); Hemoglobin 12.3 g/dL (13.5-17.5); Lymphocytes Absolute Auto 400 /uL (1100-4500); Lymphocytes Percent Auto 2.8 % (25-40); Mean Corpuscular HGB Conc 33.8 % (30-36); Mean Corpuscular Hemoglobin 30.7 PG (26-34); Mean Corpuscular Volume 90.9 fL (80-100); Monocytes Absolute Auto 100 /uL (0-900); Monocytes Percent Auto 0.6 % (3-14); Neutrophils Absolute Auto 13400 /uL (1500-7000); Neutrophils Percent Auto 96.5 % (50-75); Platelet Count 144 X10^3/uL (150-400); Red Blood Cell Count 4.01 X10^6/uL (4.5-5.9); Red Cell Distribution Width 13.4 % (11.6-14.8); White Blood Cell Count 13.9 X10^3/uL (4.5-11.0)
[2020-12-23 06:39] LABS: Magnesium 1.7 mg/dL (1.6-2.3)
[2020-12-23 06:40] LABS: Alanine Aminotransferase 36 IU/L (<50); Albumin 2.4 g/dL (3.5-5.0); Albumin Globulin Ratio 0.9 (1.0-2.8); Alkaline Phosphatase 108 U/L (38-126); Aspartate Aminotransferase 104 IU/L (17-59); BUN Creatinine Ratio 30.8 (6-22); Bilirubin Total 1.4 mg/dL (0.2-1.3); Blood Urea Nitrogen 48 mg/dL (9-20); Calcium 8.1 mg/dL (8.4-10.2); Carbon Dioxide 18 mmol/L (22-32); Chloride 111 mmol/L (98-107); Estimated Glomerular Filt Rate 43.1 mL/min (>60); Globulin 2.6 g/dL (1.7-4.1); Glucose 104 mg/dL (80-110); HEMOLYSIS < 15 (0-50); Potassium 3.5 mmol/L (3.4-5.1); Sodium 136 mmol/L (137-145)
--- NOTE | 2020-12-23 07:18 | PC.NURSE ---
PT ADMITTED TO ROOM 226 FROM ED- HE IS ABLE TO ANSWER SOME QUESTIONS AND IS APPROPRIATE, DENIES PAIN - LUNGS DIM BUT CLEAR- REQUIRING O2 2-3L NC, SINUS TACHY WITH PVCS NOTED RECEIVING NS @ 100CC/H - #2 LITER HANGING AT THIS TIME- SUPRA-PUBIC CATHETER DRAINING MODERATE AMOUNT OF CLOUDY TURBID URINE- OLD BLOODY DRIED DRAINAGE TO PERINEAL AREA- IV SITE X2 TEMP IN THE '
[2020-12-23] MEDS: MEROPENEM 1 GM in SODIUM CHLORIDE 0.9% 100 ML 200 ML IV ×2 (07:47→15:42)
[2020-12-23] MEDS: SODIUM CHLORIDE 0.9% 1,000 ML 100 ML IV ×2 (07:47→20:15)
[2020-12-23] MEDS: ENOXAPARIN 40 MG/0.4 ML SYRINGE SUBCUT (09:20)
--- NOTE | 2020-12-23 09:34 | CM.DANOTE ---
Addendum entered by Renee Minaya R.N. 12/23/20 14:57: Patient had a PICC line put in for IV antibiotics. Patient may most likely need retirement before discharge. Has not yet worked with P.T. Patient's left already, have not yet had a chance to speak to her, and caregiver is currently in patient's room now, so this case therapist is not yet able to ask him permission to contact . Went ahead and sent referral over to [facility], after confirming with Heraclio in [facility] that patient is inpatient status as of today. He would qualify for retirement by 12/26. Will attempt to speak to patient or , when able. Original Note: DCP: Case received, EMR reviewed. Checked on patient, he has been sleeping. Was able to obtain some information from nurse, Danae, as well as patient's chart. DCP assessment completed with information currently available. Patient is a 80 year old male who admitted early this morning to the care of the hospitalist team. PCP: Dr. Gibbs. Payer: confirmed: Medicare. Patient came to the hospital via ambulance secondary to falls/syncope. Patient holds current diagnosis of UTI, urinary retention. Patient had an indwelling yuen for over a year, and it was removed, he is incontinent of urine. He has history of BPH, and has been under the care of urology. Yuen was attempted here at hospital, and was unable to insert. He had 1 liter of urine in his bladder. He was then given an emergency suprapubic catheter. Patient resides here in [place] with his spouse, Shaylee. She has not yet been here at the hospital. It is noted that he had been noted to have an increase in falls at home and confusion. It is unclear at this time if patient is currently driving, or if he has had to use any DME supplies. P: DCP to continue to follow. At this time, patient is medically stable and has no current P.T. orders as of yet, and there may not be urology available this weekend. Will follow closely for needs. Renee Minaya RN/In Room Dining Server
--- NOTE | 2020-12-23 11:12 | DI.RAD.S_ITS ---
PROCEDURE: XR CHEST FOR PICC 1V INDICATIONS: verify PICC placement COMPARISON: [facility], CR, XR CHEST 1V, 12/22/2020, 20:10. FINDINGS: PICC was placed by the intravenous therapy team from the left side. Fluoroscopic spot film demonstrates the tip of PICC projecting to the area of the upper SVC. Median sternotomy is present. Moderate multifocal patchy bilateral mid and lower lung opacities. IMPRESSION: 1. Tip of left arm PICC is within the upper SVC. 2. Bilateral pneumonia. Continued plain film surveillance is recommended to ensure resolution, and to exclude underlying or central malignancy. Dictated by: Amanda Preciado M.D. on 12/23/2020 at 10:59 Approved by: Amanda Preciado M.D. on 12/23/2020 at 10:59
[2020-12-23] MEDS: NOREPINEPHRINE 4 MG in DEXTROSE 5% IN WATER 250 ML 30.48 ML IV (11:40)
[2020-12-23] MEDS: SODIUM CHLORIDE 0.9% FLUSH 10 ML IV (12:18)
--- NOTE | 2020-12-23 12:42 | DI.CT.S_ITS ---
PROCEDURE: CT ABDOMEN PELVIS WO CON INDICATIONS: sepsis, ELODIA, urinary retention, any hydro or stone? TECHNIQUE: Noncontrast 5 mm thick sections acquired from the diaphragms to the symphysis. 5 mm coronal and sagittal reformats were then performed. For radiation dose reduction, the following was used: automated exposure control, adjustment of mA and/or kV according to patient size. COMPARISON: None. FINDINGS: Image quality: Excellent. ABDOMEN: Lung bases: Moderate bibasilar dependent atelectasis versus pneumonia. Severe emphysema. Heart size is normal. Solid organs: Liver is normal in size. Gallbladder is mildly distended but otherwise unremarkable. . Pancreas is normal in contours. Spleen is normal in size. No adrenal nodules. Right kidney is grossly unremarkable. Mild left renal enlargement. Moderate left hydronephrosis. Mild diffuse left ureteral dilatation. Peritoneum and bowel: Unenhanced bowel loops demonstrate normal wall thickness and caliber. No free fluid or air. Nodes and vessels: No retroperitoneal or mesenteric adenopathy by size criteria. Aorta and inferior vena cava are normal in caliber. A pigtail drainage catheter terminates within the right hemipelvis. This drainage catheter appears to traverse a gas containing structure within the anterior pelvis, possibly representing urinary bladder. Correlation with surgical history is recommended. Miscellaneous: No ventral hernias. PELVIS: Genitourinary: There is severe eccentric thickening of the urinary bladder. Miscellaneous: No inguinal hernias or adenopathy. Bones: No suspicious bony lesions. No vertebral body compression fractures. IMPRESSION: 1. Urinary bladder thickening, suggestive of neoplasm. There appears to be associated obstruction of the left ureterovesical junction associated with moderate left hydronephrosis. 2. There appears to be a pigtail catheter within the urinary bladder. Recommend correlation with surgical history. 3. Bibasilar atelectasis versus pneumonia. Emphysema. Dictated by: Amanda Preciado M.D. on 12/23/2020 at 12:57 Approved by: Amanda Preciado M.D. on 12/23/2020 at 13:01
[2020-12-23 15:38] LABS: Lactate (Lactic Acid) 4.9 mmol/L (0.7-2.1)
[2020-12-23 16:10] LABS: Acinetobacter baumannii Not Detected (Not Detect); Candida albicans Not Detected (Not Detect); Candida glabrata Not Detected (Not Detect); Candida krusei Not Detected (Not Detect); Candida parapsilosis Not Detected (Not Detect); Candida tropicalis Not Detected (Not Detect); E. coli Not Detected (Not Detect); Enterobacter cloacae complex Not Detected (Not Detect); Enterobacteriaceae species Detected (Not Detect); Enterococcus species Not Detected (Not Detect); Haemophilus influenzae Not Detected (Not Detect); KPC (carbapenem-resist gene) Not Detected (Not Detect); Listeria monocytogenes Not Detected (Not Detect); Neisseria meningitidis Not Detected (Not Detect); Proteus species Not Detected (Not Detect); Pseudomonas aeruginosa Not Detected (Not Detect); Serratia marcescens Not Detected (Not Detect); Staphylococcus species Not Detected (Not Detect); Streptococcus agalactiae (Gr B Not Detected (Not Detect); Streptococcus pneumonia Not Detected (Not Detect); Streptococcus pyogenes (Gr A) Not Detected (Not Detect); Streptococcus species Not Detected (Not Detect)
[2020-12-23 17:09] LABS: Reflexed Lactate in 2 Hours Y
[2020-12-23 19:18] LABS: Lactate (Lactic Acid) 2.5 mmol/L (0.7-2.1)
--- NOTE | 2020-12-23 19:31 | P.DS_ITS ---
History of Present Illness History of Present Illness Chief complaint: near syncope Narrative: Per Joie Martini: Patient is a 80-year-old gentleman Ankush Douglas who was brought into the ED this evening because he is too weak to stand up at home and continues to fall down when he attempts to stand. The patient advised the ED that his symptoms started in May when he was lifting a heavy bag and feels like he tore his right rotator cuff. His noted that he has been increasingly weak since that time and having more difficulty using his right arm to propel him out of chairs etc.. Apparently he has had a number of falls over the last couple of days, yesterday he fell and hit his head without a loss of consciousness he is without signs of neck injury or pain. He has history of BPH acute urinary retention and bladder infections and had an indwelling Dave catheter for about a year. He now is mostly incontinent of urine. Today his states that he has been increasingly weak he had a single cup of coffee and a single Coke this afternoon. They were sitting out on the deck and he was unable to stand by himself and it took 2 people to assist him to the bathroom. At that point they brought him into the emergency department. The patient continued to insist he was fine. He denied fever, cough, chills, chest pain, shortness of breath. While in the ED patient was found to have a 1000 cc of urinary retention in his bladder, multiple different catheters were attempted and were unsuccessful. Dr. Thomas after consulting Urology placed a temporary suprapubic catheter which has been able to facilitate some urine drainage. Patient became increasingly confused, tachycardic, tachypneic, and febrile while in the ED. Patient unable to accurately provide ROS, HPI or family history information due to encephalopathy Patient's vital signs upon admit temp 102.4?, BP 98/58, HR 110, RR 45, O2 saturation 94% on room air. Patient had elevated WBC 14.2 with neutrophil left shift 11,700, HGB 13.1, HCT 40. Sodium 132, ELODIA reflected in a BUN 55, creatinine 1.56, GFR 43.1, and glucose 116. Patient's lactate was elevated at 2.9 likely reflective of the trauma of attempted to catheterize him. Lipase 20. Patient's urinalysis was positive for nitrates and leukocytes culture pending. Chest x-ray demonstrated no acute cardiopulmonary processes, lungs were hyperexpanded. Patient admitted for urinary retention, UTI, ELODIA, sepsis with encephalopathy. Discharge Providers Provider Date of admission: 12/23/20 04:54 Discharge Date: 12/23/20 Primary care physician: Kieran Gibbs MD Discharge provider: Rambo Yao MD Summary Hospital Course Discharge Diagnosis: 1. Septic shock from Enterobacter bacteremia from urinary tract infection from acute urinary retention from acute bladder outlet obstruction 2. Left hydronephrosis 3. Bladder wall eccentric thickening 4. History of aortic stenosis s/p valve replacement 5. Atrial fibrillation, new 6. Elevated creatinine, presumed ELODIA 7. Thrombocytopenia, plts 144 8. BPH Hospital Course: Mr. Douglas has a history of BPH with history of requiring a dave catheter that had been discontinued for over a year. He came in with weakness and found to have urinary obstruction with sepsis. Dave was unable to be placed. ED did place a temporary suprapubic catheter. He had approximately 2L total drained. Repeat bladder scans did not show urinary retention. He had grossly positive cloudy urine with WBC, many bacteria, leuk esterase, nitrate and blood. He was given a dose of ceftriaxone. His blood pressures dropped to the 80s and in total he has received since arriving in the ED, 5L of IV bolus, along with maintenance IV fluid. His blood pressures remained low, so he was st arted on levophed and in the range of 6-8 to maintain a MAP>65. He had presumed ELODIA with creatinine of 1.56, though last creatinine available was in 2017 and was 1.0. He was switched to meropenem from ceftriaxone due to severity of his illness. He had a negative MRSA nasal swab. He was COVID negative. Given his worsening symptoms CT abdomen was performed and showed severe eccentric bladder wall thickening with left hydronephrosis. No imaging was available to confirm chronicity of hydronephrosis. As he clinically worsened after having bladder decompression there was some thought that patient may end up needing percutaneous nephrostomy. Blood cultures grew Enterobacter in two sets of blood cultures in both bottles. Sensitivities pending. His lactate peaked at 4.9, but improved to 2.5 on discharge. Urine culture was pending on discharge. Finally, he was noted to be in new atrial fibrillation after starting on levophed, no previous history of this. His heart rate remained borderline tachycardic in the 90s, and he was not started on rate control medications. Vitals on discharge: BP 85/54 on levophed, HR 91, resp rate 24, 96% on 2L O2 CODE: DNR/DNI Proxy: Shaylee Douglas, DVT ppx: [id number] [id number] sc Status at Discharge Cognitive/behavioral status at discharge: confused Exam Vital Signs (past 8 hours): - 12/23/20 11:55 12/23/20 12:00 12/23/20 12:30 Temperature 97.4 F L Pulse Rate 102 H 106 H Respiratory Rate 23 24 Blood Pressure 92/55 L 102/55 L Pulse Oximetry 92 95 12/23/20 12:55 12/23/20 13:00 12/23/20 13:55 Temperature Pulse Rate 125 H 104 H 106 H Respiratory Rate 24 22 22 Blood Pressure 87/56 L Pulse Oximetry 93 93 95 12/23/20 13:57 12/23/20 13:58 12/23/20 14:00 Temperature Pulse Rate 104 H 105 H 104 H Respiratory Rate 22 24 Blood Pressure 91/53 L 93/52 L 85/52 L Pulse Oximetry 94 94 94 12/23/20 14:55 12/23/20 15:00 12/23/20 15:53 Temperature 97.8 F Pulse Rate 104 H 100 H 99 H Respiratory Rate 22 22 28 H Blood Pressure 95/50 L 87/48 L Pulse Oximetry 97 94 98 12/23/20 16:48 12/23/20 18:01 12/23/20 18:49 Temperature 97.9 F 98.6 F 98 F Pulse Rate 92 H 109 H 91 H Respiratory Rate 17 29 H 26 H Blood Pressure 94/57 L 91/56 L 85/54 L Pulse Oximetry 95 94 96 Oxygen Delivery Method Room Air Oxygen Flow Rate 2 Narrative Exam Narrative: General: elderly, no acute distress HEENT: moist mucous membranes Lungs: clear bilaterally Cardio: regular rate and rhythm, no murmurs Abdomen: Soft nontender, not distended, temporary suprapubic catheter in place, draining cloudy yellow liquid Neurologic: Globally weak but Grossly neurologically intact with no obvious asymmetries or abnormalities, his mental status is much improved compared to admission Extremities: No trauma, well perfused, no lower extremity edema minor abrasion to the left anterior newell after his fall yesterday Objective Labs Result Diagrams: 12/23/20 06:15 12/23/20 06:15 Labs: Laboratory Results - last 24 hr 12/22/20 12/22/20 12/22/20 20:20 20:20 20:20 WBC 14.2 H RBC 4.38 L Hgb 13.1 L Hct 40.0 L MCV 91.3 MCH 29.9 MCHC 32.8 RDW 13.0 Plt Count 244 Neut % (Auto) 82.7 H Lymph % (Auto) 5.2 L Overton % (Auto) 11.7 Eos % (Auto) 0.1 L Baso % (Auto) 0.3 Neut # (Auto) 06997 H Lymph # (Auto) 700 L Overton # (Auto) 1700 H Eos # (Auto) 0 Baso # (Auto) 0 Sodium 132 L Potassium 4.3 Chloride 102 Carbon Dioxide 22 BUN 55 H Creatinine 1.56 H Estimated GFR 43.1 L BUN/Creatinine Ratio 35.3 H Glucose 116 H Lactate Calcium 9.4 Magnesium Total Bilirubin 0.8 AST 61 H ALT 33 Alkaline Phosphatase 75 Total Creatine Kinase 91 CK-MB (CK-2) TNP CK-MB (CK-2) Rel Index TNP Troponin I < 0.012 Total Protein 6.7 Albumin 3.5 Globulin 3.2 Albumin/Globulin Ratio 1.1 Lipase 20 L Urine Color Urine Appearance Urine pH Ur Specific Bradley Urine Protein Urine Glucose (UA) Urine Ketones Urine Occult Blood Urine Nitrate Urine Bilirubin Urine Urobilinogen Ur Leukocyte Esterase Urine RBC Urine WBC Ur Squamous Epith Cells Ur Transition Epith Cell Ur Renal Epithelial Cell Calcium Oxalate Crystal Uric Acid Crystals Triple Phos Crystals Other Crystals Amorphous Sediment Urine Bacteria Hyaline Casts Granular Casts RBC Casts WBC Casts Other Casts Urine Mucus Urine Trichomonas Urine Yeast Urine Sperm Ur Culture Indicated? Micro UA Comment Nasal Screen MRSA (PCR) Ethyl Alcohol < 10 A. baumannii (PCR) Michelle albicans (PCR) C. glabrata (PCR) C. krusei (PCR) C. parapsilosis (PCR) C. tropicalis (PCR) SARS-CoV-2 (PCR) Enterobacteriac sp PCR E. cloacae complex PCR Enterococcus sp PCR E. coli (PCR) H. influenzae (PCR) Klebsiella oxytoca PCR Klebsiella pneumoniae List. monocytogenes PCR N. meningitidis (PCR) Proteus species (PCR) Serratia marcescens PCR Staphylococcus sp PCR Staph aureus (PCR) mecA-Methicil Res Gene Streptococcus sp PCR Group A Strep (PCR) Strep agalactiae (PCR) Strep pneumoniae (PCR) P. aeruginosa (PCR) Maria Fernanda/B-Vanco Res Genes KPC-Carbap Res Gene PCR 12/23/20 12/23/20 12/23/20 01:45 02:00 02:00 WBC RBC Hgb Hct MCV MCH MCHC RDW Plt Count Neut % (Auto) Lymph % (Auto) Overton % (Auto) Eos % (Auto) Baso % (Auto) Neut # (Auto) Lymph # (Auto) Overton # (Auto) Eos # (Auto) Baso # (Auto) Sodium Potassium Chloride Carbon Dioxide BUN Creatinine Estimated GFR BUN/Creatinine Ratio Glucose Lactate 2.7 H Calcium Magnesium Total Bilirubin AST ALT Alkaline Phosphatase Total Creatine Kinase CK-MB (CK-2) CK-MB (CK-2) Rel Index Troponin I Total Protein Albumin Globulin Albumin/Globulin Ratio Lipase Urine Color Yellow Urine Appearance Cloudy Urine pH 6.0 Ur Specific Bradley 1.010 Urine Protein 2+ H Urine Glucose (UA) Negative Urine Ketones Negative Urine Occult Blood 3+ H Urine Nitrate Positive H Urine Bilirubin Negative Urine Urobilinogen 0.2 Ur Leukocyte Esterase 2+ H Urine RBC Cancelled 30-100/hpf H Urine WBC Cancelled >100/hpf H Ur Squamous Epith Cells Cancelled Ur Transition Epith Cell Cancelled Ur Renal Epithelial Cell Cancelled Calcium Oxalate Crystal Cancelled Uric Acid Crystals Cancelled Triple Phos Crystals Cancelled Other Crystals Cancelled Amorphous Sediment Cancelled Urine Bacteria Cancelled Many (>30) H Hyaline Casts Cancelled Granular Casts Cancelled RBC Casts Cancelled WBC Casts Cancelled Other Casts Cancelled Urine Mucus Cancelled Urine Trichomonas Cancelled Urine Yeast Cancelled Urine Sperm Cancelled Ur Culture Indicated? Cancelled Specimen cultured Micro UA Comment Cancelled Nasal Screen MRSA (PCR) Ethyl Alcohol A. baumannii (PCR) Michelle albicans (PCR) C. glabrata (PCR) C. krusei (PCR) C. parapsilosis (PCR) C. tropicalis (PCR) SARS-CoV-2 (PCR) Enterobacteriac sp PCR E. cloacae complex PCR Enterococcus sp PCR E. coli (PCR) H. influenzae (PCR) Klebsiella oxytoca PCR Klebsiella pneumoniae List. monocytogenes PCR N. meningitidis (PCR) Proteus species (PCR) Serratia marcescens PCR Staphylococcus sp PCR Staph aureus (PCR) mecA-Methicil Res Gene Streptococcus sp PCR Group A Strep (PCR) Strep agalactiae (PCR) Strep pneumoniae (PCR) P. aeruginosa (PCR) Maria Fernanda/B-Vanco Res Genes KPC-Carbap Res Gene PCR 12/23/20 12/23/20 12/23/20 02:00 02:24 04:20 WBC RBC Hgb Hct MCV MCH MCHC RDW Plt Count Neut % (Auto) Lymph % (Auto) Overton % (Auto) Eos % (Auto) Baso % (Auto) Neut # (Auto) Lymph # (Auto) Overton # (Auto) Eos # (Auto) Baso # (Auto) Sodium Potassium Chloride Carbon Dioxide BUN Creatinine Estimated GFR BUN/Creatinine Ratio Glucose Lactate 2.9 H Calcium Magnesium Total Bilirubin AST ALT Alkaline Phosphatase Total Creatine Kinase CK-MB (CK-2) CK-MB (CK-2) Rel Index Troponin I Total Protein Albumin Globulin Albumin/Globulin Ratio Lipase Urine Color Urine Appearance Urine pH Ur Specific Bradley Urine Protein Urine Glucose (UA) Urine Ketones Urine Occult Blood Urine Nitrate Urine Bilirubin Urine Urobilinogen Ur Leukocyte Esterase Urine RBC Urine WBC Ur Squamous Epith Cells Ur Transition Epith Cell Ur Renal Epithelial Cell Calcium Oxalate Crystal Uric Acid Crystals Triple Phos Crystals Other Crystals Amorphous Sediment Urine Bacteria Hyaline Casts Granular Casts RBC Casts WBC Casts Other Casts Urine Mucus Urine Trichomonas Urine Yeast Urine Sperm Ur Culture Indicated? Micro UA Comment Nasal Screen MRSA (PCR) Ethyl Alcohol A. baumannii (PCR) Not detected Michelle albicans (PCR) Not detected C. glabrata (PCR) Not detected C. krusei (PCR) Not detected C. parapsilosis (PCR) Not detected C. tropicalis (PCR) Not detected SARS-CoV-2 (PCR) Negative Enterobacteriac sp PCR Detected H E. cloacae complex PCR Not detected Enterococcus sp PCR Not detected E. coli (PCR) Not detected H. influenzae (PCR) Not detected Klebsiella oxytoca PCR Not detected Klebsiella pneumoniae Not detected List. monocytogenes PCR Not detected N. meningitidis (PCR) Not detected Proteus species (PCR) Not detected Serratia marcescens PCR Not detected Staphylococcus sp PCR Not detected Staph aureus (PCR) Not detected mecA-Methicil Res Gene Not Reportable Streptococcus sp PCR Not detected Group A Strep (PCR) Not detected Strep agalactiae (PCR) Not detected Strep pneumoniae (PCR) Not detected P. aeruginosa (PCR) Not detected Maria Fernanda/B-Vanco Res Genes Not Reportable KPC-Carbap Res Gene PCR Not detected 12/23/20 12/23/20 12/23/20 06:00 06:15 06:15 WBC 13.9 H RBC 4.01 L Hgb 12.3 L Hct 36.4 L MCV 90.9 MCH 30.7 MCHC 33.8 RDW 13.4 Plt Count 144 L Neut % (Auto) 96.5 H Lymph % (Auto) 2.8 L Overton % (Auto) 0.6 L Eos % (Auto) 0.1 L Baso % (Auto) 0.0 Neut # (Auto) 88021 H Lymph # (Auto) 400 L Overton # (Auto) 100 Eos # (Auto) 0 Baso # (Auto) 0 Sodium Potassium Chloride Carbon Dioxide BUN Creatinine Estimated GFR BUN/Creatinine Ratio Glucose Lactate Calcium Magnesium 1.7 Total Bilirubin AST ALT Alkaline Phosphatase Total Creatine Kinase CK-MB (CK-2) CK-MB (CK-2) Rel Index Troponin I Total Protein Albumin Globulin Albumin/Globulin Ratio Lipase Urine Color Urine Appearance Urine pH Ur Specific Bradley Urine Protein Urine Glucose (UA) Urine Ketones Urine Occult Blood Urine Nitrate Urine Bilirubin Urine Urobilinogen Ur Leukocyte Esterase Urine RBC Urine WBC Ur Squamous Epith Cells Ur Transition Epith Cell Ur Renal Epithelial Cell Calcium Oxalate Crystal Uric Acid Crystals Triple Phos Crystals Other Crystals Amorphous Sediment Urine Bacteria Hyaline Casts Granular Casts RBC Casts WBC Casts Other Casts Urine Mucus Urine Trichomonas Urine Yeast Urine Sperm Ur Culture Indicated? Micro UA Comment Nasal Screen MRSA (PCR) Negative for mrsa Ethyl Alcohol A. baumannii (PCR) Michelle albicans (PCR) C. glabrata (PCR) C. krusei (PCR) C. parapsilosis (PCR) C. tropicalis (PCR) SARS-CoV-2 (PCR) Enterobacteriac sp PCR E. cloacae complex PCR Enterococcus sp PCR E. coli (PCR) H. influenzae (PCR) Klebsiella oxytoca PCR Klebsiella pneumoniae List. monocytogenes PCR N. meningitidis (PCR) Proteus species (PCR) Serratia marcescens PCR Staphylococcus sp PCR Staph aureus (PCR) mecA-Methicil Res Gene Streptococcus sp PCR Group A Strep (PCR) Strep agalactiae (PCR) Strep pneumoniae (PCR) P. aeruginosa (PCR) Maria Fernanda/B-Vanco Res Genes KPC-Carbap Res Gene PCR 12/23/20 12/23/20 12/23/20 06:15 14:30 19:00 WBC RBC Hgb Hct MCV MCH MCHC RDW Plt Count Neut % (Auto) Lymph % (Auto) Overton % (Auto) Eos % (Auto) Baso % (Auto) Neut # (Auto) Lymph # (Auto) Overton # (Auto) Eos # (Auto) Baso # (Auto) Sodium 136 L Potassium 3.5 Chloride 111 H Carbon Dioxide 18 L BUN 48 H Creatinine 1.56 H Estimated GFR 43.1 L BUN/Creatinine Ratio 30.8 H Glucose 104 Lactate 4.9 H* 2.5 H Calcium 8.1 L Magnesium Total Bilirubin 1.4 H AST 104 H ALT 36 Alkaline Phosphatase 108 Total Creatine Kinase CK-MB (CK-2) CK-MB (CK-2) Rel Index Troponin I Total Protein 5.0 L Albumin 2.4 L Globulin 2.6 Albumin/Globulin Ratio 0.9 L Lipase Urine Color Urine Appearance Urine pH Ur Specific Bradley Urine Protein Urine Glucose (UA) Urine Ketones Urine Occult Blood Urine Nitrate Urine Bilirubin Urine Urobilinogen Ur Leukocyte Esterase Urine RBC Urine WBC Ur Squamous Epith Cells Ur Transition Epith Cell Ur Renal Epithelial Cell Calcium Oxalate Crystal Uric Acid Crystals Triple Phos Crystals Other Crystals Amorphous Sediment Urine Bacteria Hyaline Casts Granular Casts RBC Casts WBC Casts Other Casts Urine Mucus Urine Trichomonas Urine Yeast Urine Sperm Ur Culture Indicated? Micro UA Comment Nasal Screen MRSA (PCR) Ethyl Alcohol A. baumannii (PCR) Michelle albicans (PCR) C. glabrata (PCR) C. krusei (PCR) C. parapsilosis (PCR) C. tropicalis (PCR) SARS-CoV-2 (PCR) Enterobacteriac sp PCR E. cloacae complex PCR Enterococcus sp PCR E. coli (PCR) H. influenzae (PCR) Klebsiella oxytoca PCR Klebsiella pneumoniae List. monocytogenes PCR N. meningitidis (PCR) Proteus species (PCR) Serratia marcescens PCR Staphylococcus sp PCR Staph aureus (PCR) mecA-Methicil Res Gene Streptococcus sp PCR Group A Strep (PCR) Strep agalactiae (PCR) Strep pneumoniae (PCR) P. aeruginosa (PCR) Maria Fernanda/B-Vanco Res Genes KPC-Carbap Res Gene PCR [facility] Medical History Benign esophageal stricture Benign prostatic hyperplasia with urinary obstruction (07/25/16) Critical aortic valve stenosis (02/14/17) Gastroesophageal reflux disease without esophagitis (02/08/16) Hematuria Left inguinal hernia Urinary catheter complication Urinary retention Surgical History History of esophagogastroduodenoscopy (EGD) History of foot surgery Social History marital status: household members: spouse Smoking Status: Never smoker alcohol intake: current substance use type: does not use Discharge Plan Discharge Plan Disposition: Xfer Acute Care Hospital Discharge orders & Medications Follow up/Referrals: Kieran Gibbs MD [Primary Care Provider] - Discharge Data Primary Care Provider: Kieran Gibbs
[2020-12-23] MEDS: NOREPINEPHRINE 4 MG in DEXTROSE 5% IN WATER 250 ML 26.67 ML IV (20:11)
--- NOTE | 2020-12-23 20:41 | PC.NURSE ---
Patient transferred to [facility] via [facility] ground transport to be seen by nephrology. Report given to Vivek in the transfer enter. Patient does not have a room assignment yet but has been notified of hospital transfer. Patient departed at 2030. At time of transfer patient was A/Ox3, on RA, with BP of 82/55 on levophed at 7mcg/min running through double lumen PICC on L upper arm. Patient has suprapubic catheter in place with cloudy dark yellow urine output. Patient's belongings sent with transfer crew. Patient had no further questions or concerns.
[2020-12-23 21:04] LABS: Reflexed Lactate in 2 Hours Y
== END 2020-12-23 20:32 | disposition short-term general hospital (02) | DRG 871 ==
LOC: ED 12-23 03:08 → AC 12-23 04:59 → ICU 12-23 12:27 → AC 12-25 16:06
PROVIDERS: Internal Medicine; Admitting Provider Nurse Practitioner Family; Emergency Provider Emergency Medicine; PCP Family Medicine Sports Medicine; Referring Provider Emergency Medicine; Visit Provider Nurse Practitioner Family
DX: A41.50 Gram-negative sepsis, unspecified (principal); G93.41 Metabolic encephalopathy; R65.21 Severe sepsis with septic shock; N39.0 Urinary tract infection, site not specified; N17.9 Acute kidney failure, unspecified; N13.30 Unspecified hydronephrosis; R33.9 Retention of urine, unspecified; R53.1 Weakness; N32.0 Bladder-neck obstruction; D69.59 Other secondary thrombocytopenia; Z20.822 Contact with and (suspected) exposure to COVID-19
CPT/HCPCS: 36415; 36569; 36592; 51702; 51798; 70450; 71045; 74176; 80053; 80320; 81001; 82550; 83605; 83690; 83735; 84484; 85025; 87040; 87077; 87086; 87150; 87186; 87205; 87635; 87797; 93005; 96361; 96365; 96375; 99285; C9803; J0696; J1170; J1650; J2185

== ENCOUNTER 2020-12-27 08:57 | Emergency (ER) | payer MEDICARE, SELFPAY ==
[2020-12-23 06:18] VITALS: BMI 18.6
[2020-12-27] VITALS (18 sets, daily range): BP systolic 124–156; BP diastolic 65–87; PULSE 57–78; RESP 14–16; TEMP 36.9; O2SAT 84–99
--- NOTE | 2020-12-27 09:07 | ED_ITS ---
HPI - General Adult General Chief complaint: Recheck/Abnormal Lab/Rx Stated complaint: Suprapubic cath fell out Time Seen by Provider: 12/27/20 09:07 Source: patient Mode of arrival: Ambulatory Limitations: no limitations History of Present Illness HPI narrative: This is a 80-year-old male who comes to the emergency department with complaint of his suprapubic catheter falling out. Patient states that was placed at [facility] recently he can not give exact dates but just returned home 2 days ago. He states he has been putting out about twice as much urine overnight. There is about half his normal amount. He has a catheter with him and appears to be more of a pigtail. It was taped into the abdomen. Patient denies any other concerns. He has not had any fevers. No chest pain or shortness of breath. No nausea or vomiting. He denies any abdominal pain at this time. Patient is unsure why he cannot have a Yuen catheter in place and cannot tell me exactly why they placed the suprapubic catheter. He does follow with Urology at [facility] with Dr. Ybarra. He lives with his as well as his Labrador named Vineet. Related Data Home Medications Medication Instructions Recorded Confirmed multivitamin 1 tab PO DAILY 03/26/18 12/27/20 acetaminophen 325 mg tablet 650 mg PO Q6H PRN 12/23/20 12/27/20 levofloxacin 750 mg tablet 750 mg PO DAILY 12/27/20 12/27/20 thiamine HCl (vitamin B1) 100 mg 100 mg PO DAILY 12/27/20 12/27/20 tablet Allergies Allergy/AdvReac Type Severity Reaction Status Date / Time omeprazole [OMEPRAZOLE] Allergy Severe nosebleeds Verified 12/27/20 14:05 Review of Systems Review of Systems ROS Unobtainable: All systems reviewed & are unremarkable except as noted in HPI and below Patient History Medical History (Updated 12/27/20 @ 16:24 by Rebekah Srinivasan DO) Benign esophageal stricture Benign prostatic hyperplasia with urinary obstruction (07/25/16) Critical aortic valve stenosis (02/14/17) Gastroesophageal reflux disease without esophagitis (02/08/16) Hematuria Left inguinal hernia Urinary catheter complication Urinary retention Surgical History History of esophagogastroduodenoscopy (EGD) History of foot surgery Social History marital status: household members: spouse Smoking Status: Never smoker alcohol intake: current substance use type: does not use Smoking Status: Never smoker alcohol intake frequency: 0-2 drinks per day Substance Use Type: does not use Exam Initial Vital Signs Initial Vital Signs: Vital Signs Temperature 98.4 F 12/27/20 09:05 Pulse Rate 69 12/27/20 09:05 Respiratory Rate 16 12/27/20 09:05 Blood Pressure 137/65 12/27/20 09:05 Pulse Oximetry 96 12/27/20 09:05 GENERAL: Alert and oriented x three, thin male in mild distress. HEENT: Head normocephalic, atraumatic, EOMI, pupils reactive, face symmetric, moist mucous membranes NECK: Supple, full range of motion CARDIOVASCULAR: Regular rate and rhythm without murmurs, rubs or gallops. RESPIRATORY: Breath sounds equal bilaterally, no wheezes rales or rhonchi. ABDOMEN: Soft, nontender. Normoactive bowel sounds all 4 quadrants. No guarding or rebound, rigidity, no mass, patient has a small incision over the abdomen that is a 0.5 cm in size which gape slightly when pulled apart. There is no drainage. There is no warmth erythema or other changes. His catheter which appears to be a pigtail is fully out. It is attached to a Yuen catheter had does have some yellow urine present. : No CVA tenderness EXTREMITIES: Normal range of motion, no clubbing or edema. Neurovascularly intact NEUROLOGICAL: Cranial nerves II through XII grossly intact. Moving all extremities SKIN: Warm, dry, no petechiae, no rashes or lesions. [place] [facility] [place] Name of Procedure: Procedure done for MR Douglas Suprapubic catheter Time-out was done Sterile technique was used Patient and gave consent, risks were discussed. Ultrasound guidance is used to confirm entrance of trocar/catheter into the bladder 5 cc of lidocaine is infiltrated into the skin and soft tissue Eleven blade needle is used to make a small skin incision at the original site. Pigtail catheter with placement trocar is used and introduced through the skin incision into the bladder with ultrasound guidance, patient did not have return of urine with attempted aspirate via tube. no blood loss Tube is secured to the lower abdomen Patient had CT KUB ordered to fully evaluate. Catheter skims edge of bladder but not fully introduced and coiled. Course Orders Ordered: ED Orders 12/27/20 11:28 CT kidney ureter bladder (KUB) Stat 12/27/20 14:22 Consult to Home Health Stat Discontinued Medications Acetaminophen (Acetaminophen 325 Mg Tablet) 650 mg PO NOW ONE Stop: 12/27/20 15:16 Last Admin: 12/27/20 16:14 Dose: 650 mg Documented by: RASHAWN Levofloxacin (Levofloxacin 250 Mg Tablet) 750 mg PO NOW ONE Stop: 12/27/20 10:00 Last Admin: 12/27/20 10:56 Dose: 750 mg Documented by: RASHAWN Lidocaine HCl (Lidocaine 2% (Glydo) 6 Ml Gel) 12 ml TOP NOW ONE Stop: 12/27/20 09:20 Last Admin: 12/27/20 09:27 Dose: 12 ml Documented by: RASHAWN Lidocaine/Sodium Bicarbonate (Lido 1%/Sod Bicarb 8.4% (10ml) 10 Ml Syringe) 10 ml INJ NOW ONE Stop: 12/27/20 10:02 Last Admin: 12/27/20 10:07 Dose: 10 ml Documented by: RASHAWN Morphine Sulfate (Morphine 2 Mg/Ml Inj) 2 mg IV NOW ONE Stop: 12/27/20 11:51 Last Admin: 12/27/20 12:56 Dose: 2 mg Documented by: RASHAWN Ondansetron HCl (Ondansetron 4 Mg/2 Ml Inj) 4 mg IV NOW ONE Stop: 12/27/20 12:59 Last Admin: 12/27/20 13:00 Dose: 4 mg Documented by: RASHAWN Consultations Consultation #1: Dr. Ybarra from [facility] urology and patient has some personal urologist paged and is on-call today. Unable to contact Consultation #2: Dr. Ballesteros with urology, who is not patient relations liaison for [facility] but attempted to contact. Consultation #3: Dr. Bess, [facility] urology. Could attempt to repeat suprapubic catheter, or aspirate. Imaging reviewed. If patient is tolerating well could transfer but does need drainage. Can contact transfer center. Additional Consultation(s): Dr. Ryan from , urology. Recommends we go ahead and transfer patient. Imaging reviewed. Plan for IR to place catheter, does recommend to leave current catheter in place. Asks to speak with [facility]. Spoke with Dr. Pierce, hospitalist who accepts for transfer. She will contact IR for procedure. All labs, vitals and history reviewed. Patient has been hemodynamically stable in department. Vital Signs Vital signs: Vital Signs - 8 hr 12/27/20 12:00 12/27/20 12:30 12/27/20 12:31 Pulse Rate 72 66 67 Respiratory Rate Blood Pressure 147/73 H Pulse Oximetry 94 96 94 12/27/20 13:00 12/27/20 13:01 12/27/20 13:30 Pulse Rate 69 66 73 Respiratory Rate Blood Pressure 148/70 H 124/74 Pulse Oximetry 95 95 92 12/27/20 14:00 12/27/20 14:01 12/27/20 14:30 Pulse Rate 73 72 64 Respiratory Rate 16 Blood Pressure 133/87 131/76 Pulse Oximetry 91 92 94 12/27/20 14:57 12/27/20 15:00 12/27/20 16:00 Pulse Rate 72 78 Respiratory Rate 16 Blood Pressure 143/77 H 150/77 H Pulse Oximetry 92 99 Medical Decision Making Lab Data Result diagrams: 12/27/20 10:15 12/27/20 10:15 Labs: Lab Results 12/27/20 12/27/20 12/27/20 Range/Units 10:15 10:15 10:50 WBC 13.8 H (4.5-11.0) X10^3/uL RBC 4.70 (4.5-5.9) X10^6/uL Hgb 13.9 (13.5-17.5) g/dL Hct 42.2 (41-53) % MCV 89.9 (80-100) fL MCH 29.6 (26-34) PG MCHC 33.0 (30-36) % RDW 13.6 (11.6-14.8) % Plt Count 128 L (150-400) X10^3/uL Neut % (Auto) 81.1 H (50-75) % Lymph % (Auto) 12.1 L (25-40) % [place] % (Auto) 5.6 (3-14) % Eos % (Auto) 0.8 L (2-4) % Baso % (Auto) 0.4 (0-2) % Neut # (Auto) 52616 H (1265-5531) /uL Lymph # (Auto) 1700 (3729-5897) /uL [place] # (Auto) 800 (0-900) /uL Eos # (Auto) 100 (0-450) /uL Baso # (Auto) 100 (0-100) /uL Sodium 142 (137-145) mmol/L Potassium 3.8 (3.4-5.1) mmol/L Chloride 110 H (98-107) mmol/L Carbon Dioxide 26 (22-32) mmol/L BUN 26 H (9-20) mg/dL Creatinine 1.03 (0.66-1.25) mg/dL Estimated GFR > 60.0 (>60) mL/min BUN/Creatinine Ratio 25.2 H (6-22) Glucose 98 (80-110) mg/dL Calcium 8.9 (8.4-10.2) mg/dL SARS-CoV-2 (PCR) Negative (Negative) Imaging Data CT scan - abdomen/pelvis: Radiologist's Impression: [address] [id number] Scan ReportSigned Patient: Ankush Douglas R#: [id number]: 2Acct:[id number]/Sex: 80 / MDate of Service: 12/27/20Loc: EDAccession Number: [id number] Procedure: CT kidney ureter bladder (KUB) Ordering Provider: Rebekah Srinivasan D.O. PROCEDURE: CT KIDNEY URETER BLADDER (KUB) INDICATIONS: urinary retention, suprapubic cath fell out. TECHNIQUE: Axial sections were acquired from the lung bases to the pubic symphysis. Coronal and sagittal reformats were performed. For radiation dose reduction, the following was used: automated exposure control, adjustment of mA and/or kV according to patient size. COMPARISON:[facility], CT, CT ABDOMEN PELVIS WO CON, 12/23/2020, 13:34. FINDINGS: Image quality: Excellent. Lung bases: Emphysematous change, small bilateral pleural effusions.. Heart: No significant findings. URINARY: Right Kidney: No stones or hydronephrosis. Right Ureter: No hydroureter. Left Kidney: No stones but there is a stable appearing left-sided [id number]-[id number] hydronephrosis. Left Ureter: No definite hydroureter Bladder: Normal wall thickness. No stones. A bladder catheter seen 12/23/20 from suprapubic approach is no longer present, and the urinary bladder is urine filled currently, measuring up to 11.9 cm AP, 12.9 cm transverse, and approximately 15.8 cm craniocaudad. A left anterior and a right posterior bladder diverticulum can be seen. ABDOMEN: Liver: Unremarkable. Gallbladder: Normal Biliary ducts: Unremarkable. Pancreas: Unremarkable. Spleen: Unremarkable. Adrenal Glands: Unremarkable. Stomach and Bowel: Stomach, small bowel loops, and colon are unremarkable. Peritoneum: No abnormal intraperitoneal fluid. No free air. Ventral Wall: No hernia. Abdominal Nodes: No enlarged retroperitoneal or mesenteric lymph nodes. Vessels: Aorta and inferior vena cava are normal in size. PELVIS: Pelvic Organs: Unremarkable. Pelvic Nodes: Unremarkable. Miscellaneous: No inguinal hernias are seen. Bones: Unremarkable. IMPRESSION: Hydronephrosis on the left, little if any changed from 12/23/20. A previously present suprapubic catheter into the bladder is no longer present. The bladder is now urine filled, dimensions as discussed above, with bladder diverticula again noted. Dictated by: Larry Carver M.D. on 12/27/2020 at 11:52 Approved by: Larry Carver M.D. on 12/27/2020 at 11:56 MDM Narrative Medical decision making narrative: Patient's case was reviewed he is unable to tell me why he had a suprapubic catheter. He was seen here on December 23, he had acute urinary retention and UTI with some significant changes to his bladder likely showing bladder cancer. There was associated obstruction of the left ureter vesicle junction with some moderate left hydro. Patient had emergent suprapubic catheter placed by Dr. Latif and this appears to still be the catheter that has fallen out. Patient was in AFib RVR, septic with a lactate of 4.9 which was trending down words but was transferred to [facility] for pos sible nephrostomy as his catheter was not draining a significant amount of urine. Patient states he was discharged home per [facility] 2 days ago. She is supposed to be on oral antibiotics or starting them today. Attempting to obtain records from [facility] and also contact his local urologist to see if patient has a plan in place in terms of his suprapubic catheter. Unable to obtain patient's records. After multiple attempts to reach Urology over many hours attempted suprapubic catheter placement. This was unsuccessful. CT KUB was ordered and appears to have coiled right at the entrance of the bladder. Continue to attempt to reach Urology and ultimately was able to speak with Dr. Bess at as well as Dr. Hallie paulino at . Patient was seen at p.m. and they accept for transfer, Dr. Barreto and he asked that we leave the catheter in place and they will see him there with Interventional Radiology to replace his catheter. Discussed with patient and . They are comfortable this plan. Patient has been hemodynamically stable. He has been uncomfortable but not exquisitely and pain. Discharge Plan Departure Patient Disposition: [facility] Clinical Impression: Acute urinary retention Suprapubic catheter dysfunction Qualifiers: Encounter type: subsequent encounter Qualified Code(s): T83.010D - Breakdown (mechanical) of cystostomy catheter, subsequent encounter Prescriptions: No Action multivitamin tablet 1 tab PO DAILY RF: 0 acetaminophen 325 mg Tablet 650 mg PO Q6H PRN (Reason: Pain (Scale Score 1-3)) RF: 0 thiamine HCl (vitamin B1) 100 mg Tablet 100 mg PO DAILY RF: 0 levofloxacin 750 mg Tablet 750 mg PO DAILY RF: 0 Referrals: Kieran Gibbs MD [Primary Care Provider] -
[2020-12-27] MEDS: LIDOCAINE 2% (GLYDO) 6 ML GEL 12 ML TOP (09:27)
[2020-12-27] MEDS: LIDO 1%/SOD BICARB 8.4% (10ML) 10 ML SYRINGE INJ (10:07)
--- NOTE | 2020-12-27 10:07 | PC.NURSE ---
attempted to place 16 fr silicone dave w/ pre med of lidocaine jelly. Unable to pass. Pt tolerated well. Plan is for Dr. Srinivasan to replace suprapubic catheter. Long discussion with re difficulty in care giving. Discussed resources. Open to INTERNAL SALESPERSON consult / Home health/ private help.
[2020-12-27 10:22] LABS: Add Manual Diff / Slide Review NO; Basophils Absolute Auto 100 /uL (0-100); Basophils Percent Auto 0.4 % (0-2); Eosinophils Absolute Auto 100 /uL (0-450); Eosinophils Percent Auto 0.8 % (2-4); Hematocrit 42.2 % (41-53); Hemoglobin 13.9 g/dL (13.5-17.5); Lymphocytes Absolute Auto 1700 /uL (1100-4500); Lymphocytes Percent Auto 12.1 % (25-40); Mean Corpuscular Hemoglobin 29.6 PG (26-34); Mean Corpuscular Volume 89.9 fL (80-100); Monocytes Absolute Auto 800 /uL (0-900); Monocytes Percent Auto 5.6 % (3-14); Neutrophils Absolute Auto 11200 /uL (1500-7000); Neutrophils Percent Auto 81.1 % (50-75); Platelet Count 128 X10^3/uL (150-400); Red Cell Distribution Width 13.6 % (11.6-14.8); White Blood Cell Count 13.8 X10^3/uL (4.5-11.0)
[2020-12-27 10:39] LABS: BUN Creatinine Ratio 25.2 (6-22); Blood Urea Nitrogen 26 mg/dL (9-20); Calcium 8.9 mg/dL (8.4-10.2); Carbon Dioxide 26 mmol/L (22-32); Chloride 110 mmol/L (98-107); Estimated Glomerular Filt Rate > 60.0 mL/min (>60); Glucose 98 mg/dL (80-110); HEMOLYSIS < 15 (0-50); Potassium 3.8 mmol/L (3.4-5.1); Sodium 142 mmol/L (137-145)
[2020-12-27] MEDS: levoFLOXacin 250 MG TABLET 750 MG PO (10:56)
[2020-12-27 11:14] LABS: COVID19 -Nasal RAPID Negative (Negative)
--- NOTE | 2020-12-27 11:26 | PC.NURSE ---
Dr. Srinivasan attempted to place suprapubic catheter. No urine output. Will get CT.
--- NOTE | 2020-12-27 11:28 | DI.CT.S_ITS ---
PROCEDURE: CT KIDNEY URETER BLADDER (KUB) INDICATIONS: urinary retention, suprapubic cath fell out. TECHNIQUE: Axial sections were acquired from the lung bases to the pubic symphysis. Coronal and sagittal reformats were performed. For radiation dose reduction, the following was used: automated exposure control, adjustment of mA and/or kV according to patient size. COMPARISON:[facility], CT, CT ABDOMEN PELVIS WO CON, 12/23/2020, 13:34. FINDINGS: Image quality: Excellent. Lung bases: Emphysematous change, small bilateral pleural effusions.. Heart: No significant findings. URINARY: Right Kidney: No stones or hydronephrosis. Right Ureter: No hydroureter. Left Kidney: No stones but there is a stable appearing left-sided [id number]-[id number] hydronephrosis. Left Ureter: No definite hydroureter Bladder: Normal wall thickness. No stones. A bladder catheter seen 12/23/20 from suprapubic approach is no longer present, and the urinary bladder is urine filled currently, measuring up to 11.9 cm AP, 12.9 cm transverse, and approximately 15.8 cm craniocaudad. A left anterior and a right posterior bladder diverticulum can be seen. ABDOMEN: Liver: Unremarkable. Gallbladder: Normal Biliary ducts: Unremarkable. Pancreas: Unremarkable. Spleen: Unremarkable. Adrenal Glands: Unremarkable. Stomach and Bowel: Stomach, small bowel loops, and colon are unremarkable. Peritoneum: No abnormal intraperitoneal fluid. No free air. Ventral Wall: No hernia. Abdominal Nodes: No enlarged retroperitoneal or mesenteric lymph nodes. Vessels: Aorta and inferior vena cava are normal in size. PELVIS: Pelvic Organs: Unremarkable. Pelvic Nodes: Unremarkable. Miscellaneous: No inguinal hernias are seen. Bones: Unremarkable. IMPRESSION: Hydronephrosis on the left, little if any changed from 12/23/20. A previously present suprapubic catheter into the bladder is no longer present. The bladder is now urine filled, dimensions as discussed above, with bladder diverticula again noted. Dictated by: Larry Carver M.D. on 12/27/2020 at 11:52 Approved by: Larry Carver M.D. on 12/27/2020 at 11:56
[2020-12-27] MEDS: MORPHINE 2 MG/ML INJ IV (12:56)
[2020-12-27] MEDS: ONDANSETRON 4 MG/2 ML INJ IV (13:00)
--- NOTE | 2020-12-27 14:25 | CM.SWNOTE ---
Addendum entered by Mary Ellen Jimenez 12/27/20 16:11: ONLINE EDITOR Note ONLINE EDITOR received VM from Liana at [facility] (Ph. # [phone]) confirming that patient was accepted for HH services. ONLINE EDITOR calls to update [facility] as patient will be transferred to [facility] and d/c to home is unknown at this time. [facility] team indicates understanding. Plan: Patient to transfer to for further medical care, upon d/c to home patient is set up with [facility]. [facility] Original Note: ONLINE EDITOR Assessment Note ONLINE EDITOR receives consult and enters room to meet with patient and Shaylee. Patient is 80 y/o male who presents to this ED due to recent suprapubic catheter that fell out. Patient and endorse recent GLFs due to loss of balance and generalized weakness. Patient endorses abdomen pain. Patient is A/Ox4, presents as tired and prefers ONLINE EDITOR speak with while patient goes in and out of resting his eyes. Patient states he understands he is waiting at this ED for the urologist to consult with him. Patient and endorses that patient has Urology appt with Dr. Ybarra at [facility] in two weeks. It is reported that patient was present at this ED recently and then transferred to [facility] due to sepsis and AFib. It is reported that patient was d/c'd from [facility] on Friday12/25/20 and HH was recommended but patient declined HH. endorses that she recently purchased patient a walker with a seat and encourages patient to utilize it for balance. endorses that patient at baseline is independent with ADLs but due to recent medical issues is needing more support with bathing, toileting and changing. ONLINE EDITOR discusses HH with patient and , and both agree to HH. ONLINE EDITOR will refer patient for HH for RN, PT, and HH aide. ONLINE EDITOR provides medicare certified options of HH providers and patient and choose [facility]. ONLINE EDITOR calls [facility] and faxes clinicals with F, and order for HH. It is reported that patient will be contacted in about 48 hours. ONLINE EDITOR informs [facility] that patient is awaiting the urologist and it is unknown if patient will d/c today. Patient and endorse that patient has PCP appt with Dr. Gibbs on 01/04/21 and will f/u regarding recent hospital visits and admissions. endorses that they do not have any family nearby but they have supportive and helpful neighbors next door. ONLINE EDITOR provides with senior resource guide and endorses that she will seek caregiver for patient if higher level of care is needed. Plan: Urologist to assess patient to determine POC, when patient is medically clear to d/c home patient to have HH referral in place for RN, PT and HH aide services. [facility]
[2020-12-27] MEDS: ACETAMINOPHEN 325 MG TABLET 650 MG PO (16:14)
== END 2020-12-27 16:55 | disposition short-term general hospital (02) ==
PROVIDERS: Emergency Provider Emergency Medicine; PCP Family Medicine Sports Medicine
DX: R33.8 Other retention of urine (principal); T83.010A Breakdown (mechanical) of cystostomy catheter, initial encounter; Z20.822 Contact with and (suspected) exposure to COVID-19
CPT/HCPCS: 36415; 51040; 74176; 80048; 85025; 87635; 96374; 96375; 99285; C9803; J2270; J2405

== ENCOUNTER → 2022-06-11 10:07 | Outpatient (CLI) | payer MEDICARE, SELFPAY ==
[2020-12-23 06:18] VITALS: BMI 18.6
--- NOTE | 2022-06-11 | DI.CT.S_ITS ---
PROCEDURE: CT IVP A/P W/WO INDICATIONS: GROSS HEMATURIA TECHNIQUE: Optional 5 mm thick noncontrast images acquired from the diaphragm to the symphysis pubis. After the administration of intravenous contrast, 5 mm thick images acquired from the diaphragm to the symphysis pubis after a 10-minute delay. 2 mm thick coronal and sagittal reformats were then performed of the kidneys and ureters. For radiation dose reduction, the following was used: automated exposure control, adjustment of mA and/or kV according to patient size. COMPARISON: [facility], CT, CT KIDNEY URETER BLADDER (KUB), 12/27/2020, 11:31. [facility], CT, CT ABDOMEN PELVIS WO CON, 12/23/2020, 13:34. FINDINGS: Image quality: Excellent. Lung bases: Severe bullous emphysematous changes and mild left medial lower lobe fibrosis. Postsurgical changes of aortic valve replacement. Urinary system: The right kidney is normal size. The left is diminutive. Punctate nonobstructing right midpole calcification. 4 mm linear right lower pole calcification. Punctate left lower pole intrarenal calcification. No hydronephrosis. Postcontrast, there is a slightly delayed left nephrogram. There is homogeneous enhancement of the right renal cortex a few parapelvic cysts are present. Normal opacification of the intrarenal collecting systems bilaterally. 1.1 cm left lateral midpole cortical hypoenhancing structure. There is delayed excretion and suboptimal opacification of the left ureter. The distal right ureter is not opacified, but the proximal portion appears normal. The urinary bladder wall is extensively thickened and there are at least three posterolateral bladder diverticula. There is layering calcification in the posterolateral right diverticulum and punctate calcification within the main lumen of the bladder near the right UVJ. Postcontrast, a plaque-like filling defect is seen posteriorly in the urinary bladder, not definitely arising from the bladder wall. This may be redundant mucosa. Mild mucosal surface enhancement but no significant wall hyperemia or perivesicular inflammation. Other solid organs: Liver is normal in size and enhancement. Gallbladder appears normal . Biliary system is non dilated. Pancreas is normal size and contains extensive punctate parenchymal calcifications. No ductal dilatation. Spleen is normal in size and enhancement. No adrenal nodules. Peritoneum and bowel: Stomach is decompressed. Bowel loops demonstrate normal wall thickness and caliber. No free fluid or air. Nodes and vessels: No retroperitoneal or mesenteric adenopathy by size criteria. Aorta and inferior vena cava are normal in size. Abdominal wall: No ventral hernias. Pelvis: No pathologic free pelvic fluid. No inguinal hernias or adenopathy. Moderate prostatomegaly. Interval removal of suprapubic bladder catheter. Bones: Moderate L1 superior endplate compression fracture is new since prior CT scans. Moderate degenerative change in both hip joints. No suspicious bone lesions. IMPRESSION: 1. Nonobstructing right intrarenal calculi. 2. No evidence of obstructive uropathy. 3. Diffuse thickening without significant inflammation of the urinary bladder wall may be secondary to chronic over distension given presence of bladder diverticula, or infectious/inflammatory cystitis. 4. Filling defect seen dependently post administration of contrast may be debris, clot, redundant mucosa, less likely neoplasm. Cystoscopy may be helpful if feasible. 5. Calcification dependently layering in a right posterior bladder diverticulum. 6. Incidental note made of new L1 compression fracture since 12/27/20. Dictated by: Mikki Romero M.D. on 06/12/2022 at 12:58 Approved by: Mikki Romero M.D. on 06/12/2022 at 13:48
[2022-06-11 10:41] LABS: BUN Creatinine Ratio 19.3 (6-22); Blood Urea Nitrogen 28 mg/dL (9-20); Estimated Glomerular Filt Rate 48 mL/min (>60)
== END ==
PROVIDERS: PCP Family Medicine Sports Medicine; Referring Provider Urology; Visit Provider Urology
DX: R31.0 Gross hematuria (principal); N32.3 Diverticulum of bladder; N20.0 Calculus of kidney; M48.56XA Collapsed vertebra, not elsewhere classified, lumbar region, initial encounter for fracture
CPT/HCPCS: 36415; 74178; 82565; 84520